=== PATIENT | female | born 1990 ===

== ENCOUNTER 2016-07-19 18:32 | Observation (INO) | payer OTHER ==
[2016-07-19] MEDS ORDERED: Sodium Chloride 0.9% 500 ML IV STA (18:44)
--- NOTE | 2016-07-19 18:50 | ED PDOC ---
Arrival/HPI - General Chief Complaint: Syncope Time Seen by Provider: 07/19/16 18:35 Historian: Patient, Family (Brother) - History of Present Illness Time/Duration: Prior to Arrival Symptom Onset: Sudden Symptom Course: Improving Severity Level: Moderate Associated Symptoms (Text): 07/19/16 18:47 Patient reports that they had finished eating and she and her brother were walking down the sidewalk, she became dizzy lightheaded and near syncopal, and then had a syncopal episode falling backwards with her brother catching her. There was no trauma. No chest pain palpitations or dyspnea. No nausea or vomiting. No tongue biting or incontinence. No seizure activity. There is a history of syncope. Past Medical History - Infectious Disease Hx of Infectious Diseases: None - Pulmonary Hx Asthma: Yes - Psychiatric Hx Substance Use: No - Surgical History Hx Dilation and Curettage: Yes Family/Social History - Physician Review Nursing Documentation Reviewed: Yes Family/Social History: Unknown Family HX Smoking Status: Former Smoker (Quit smoking 2 years ago) Hx Alcohol Use: Yes Frequency of alcohol use: Socially Hx Substance Use: No Allergies/Home Meds Allergies/Adverse Reactions: Allergies No Known Allergies Allergy (Verified 07/19/16 18:41) Home Medications: Home Meds Medication Instructions Recorded Confirmed Albuterol HFA [Ventolin HFA 90 2 puff INH PRN PRN 07/19/16 07/19/16 mcg/actuation (8 g)] Review of Systems - Physician Review All systems were reviewed & negative as marked: Yes - Review of Systems Constitutional: Normal Respiratory: Normal Cardiovascular: Normal Gastrointestinal: Normal Genitourinary Female: Normal Skin: Normal Neurological: Dizziness. absent: Headache, Focal Weakness, Gait Changes, Speech Changes, Facial Droop, Disequilibrium, Seizure Physical Exam Vital Signs Temp Pulse Resp BP Pulse Ox 07/19/16 19:31 98 F 76 18 105/68 98 07/19/16 19:12 98.3 F 65 16 105/59 L 100 Temperature: Afebrile Blood Pressure: Normal Pulse: Regular Respiratory Rate: Normal Appearance: Positive for: Well-Appearing, Non-Toxic, Comfortable Pain Distress: None Mental Status: Positive for: Alert and Oriented X 3 - Systems Exam Head: Present: Atraumatic, Normocephalic Pupils: Present: PERRL Extroacular Muscles: Present: EOMI Conjunctiva: Present: Normal Ears: Present: NORMAL TM, Normal Canal. No: Erythema Mouth: No: Moist Mucous Membranes Pharnyx: No: ERYTHEMA, EXUDATE, TONSILS ENLARGED Neck: Present: Normal Range of Motion Respiratory/Chest: Present: Clear to Auscultation, Good Air Exchange. No: Respiratory Distress, Accessory Muscle Use Cardiovascular: Present: Regular Rate and Rhythm, Normal S1, S2. No: Murmurs Abdomen: Present: Normal Bowel Sounds. No: Tenderness, Distention, Peritoneal Signs, Rebound, Guarding Upper Extremity: Present: Normal Inspection. No: Cyanosis, Edema Lower Extremity: Present: Normal Inspection. No: Edema Neurological: Present: GCS=15, CN II-XII Intact, Speech Normal, Motor Func Grossly Intact, Normal Sensory Function, Normal Cerebellar Funct Skin: Present: Warm, Dry, Normal Color. No: Rashes Psychiatric: Present: Alert, Oriented x 3, Normal Insight, Normal Concentration Medical Decision Making ED Course and Treatment: 07/19/16 18:49 EKG shows normal sinus rhythm rate approximately 65 with a sinus arrhythmia and no acute ST or T-wave changes 07/19/16 20:22 Patient is complaining of an aching type of chest pain now which she has had for approximately 5 minutes. Her lungs are clear. Heart is regular. Chest is nontender. Repeat EKG shows normal sinus rhythm rate approximately 70 with a right bundle branch block and no acute ST or T-wave changes. A d-dimer has been added. 07/19/16 20:55 D-dimer is negative. Arrangements made for telemetry observation with the medical tech for the hospitalist service and house doctor Dr Thony Aguirre will be here. 07/19/16 21:00 Chest 1 view shows no infiltrate or effusion or cardiomegaly - Lab Interpretations Lab Results: 07/19/16 19:00 07/19/16 19:00 Lab Results 07/19/16 19:00: D-Dimer, Quantitative 0.24 07/19/16 19:00: Alcohol, Quantitative < 10 07/19/16 19:00: Sodium 139, Potassium 3.4 L, Chloride 103, Carbon Dioxide 28, Anion Gap 11, BUN 13, Creatinine 0.7, Est GFR ( Amer) > 60, Est GFR (Non- Af Amer) > 60, Random Glucose 104, Calcium 8.6, Phosphorus 2.7, Magnesium 2.0, Total Bilirubin 0.3, AST 18, ALT 28, Alkaline Phosphatase 64, Lactate Dehydrogenase 335, Total Creatine Kinase 30 L, Troponin I < 0.01, Total Protein 6.7, Albumin 3.8, Globulin 2.8, Albumin/Globulin Ratio 1.4 07/19/16 19:00: WBC 4.3 L, RBC 4.24, Hgb 11.1 L, Hct 33.7 L, MCV 79.5 L, MCH 26.2, MCHC 32.9, RDW 13.5, Plt Count 243, MPV 10.3, Gran % 54.9, Lymph % (Auto) 36.0 H, [place] % (Auto) 7.7 H, Eos % (Auto) 0.9 L, Baso % (Auto) 0.5, Gran # 2.36 , Lymph # 1.6, [place] # 0.3, Eos # 0.0, Baso # 0.02 07/19/16 18:50: Urine Opiates Screen Negative, Urine Methadone Screen Negative, Ur Barbiturates Screen Negative, Ur Phencyclidine Scrn Negative, Ur Amphetamines Screen Negative, U Benzodiazepines Scrn Negative, U Oth Cocaine Metabols Negative, U Cannabinoids Screen Negative 07/19/16 18:50: Urine Color Yellow, Urine Appearance Clear, Urine pH 6.5, Ur Specific [place] 1.025, Urine Protein Negative, Urine Glucose (UA) 100 H, Urine Ketones Trace H, Urine Blood Negative, Urine Nitrate Negative, Urine Bilirubin Negative, Urine Urobilinogen 0.2, Ur Leukocyte Esterase Negative - RAD Interpretation Radiology Orders: 07/19/16 18:44 HEAD W/O CONTRAST [CT] Stat 07/19/16 20:48 CHEST PORTABLE [RAD] Stat CT scan of the head as read by the radiologist shows no acute findings Chute Operator: Radiologist - Medication Orders Current Medication Orders: Discontinued Medications Sodium Chloride (Sodium Chloride 0.9%) 500 mls @ 1,000 mls/hr IV .Q30M STA Stop: 07/19/16 19:13 Last Admin: 07/19/16 19:07 Dose: 1,000 mls/hr Potassium Chloride (Klor-Con 10) 10 meq PO STAT STA Stop: 07/19/16 20:18 Last Admin: 07/19/16 20:28 Dose: 10 meq Comments: 1 Disposition/Present on Arrival - Present on Arrival Any Indicators Present on Arrival: No History of DVT/PE: No History of Uncontrolled Diabetes: No Urinary Catheter: No History of Decub. Ulcer: No History Surgical Site Infection Following: None - Disposition Have Diagnosis and Disposition been Completed?: Yes Diagnosis: Syncope, Right bundle branch block Disposition: HOSPITALIZED Disposition Time: 20:56 Patient Plan: Observation, Telemetry Patient Problems: Current Active Problems Problem Status Onset Right bundle branch block Acute Syncope Acute Condition: GOOD Discharge Instructions (ExitCare): Syncope (ED) Referrals: PCP,NO [Primary Care Provider] - Follow up with primary
[2016-07-19 19:05] LABS: PH,URINE 6.5 (4.7-8.0); URINE BILIRUBIN NEGATIVE (NEGATIVE); URINE BLOOD NEGATIVE (NEGATIVE); URINE GLUCOSE (UA) 100 mg/dL (NEGATIVE); URINE KETONE TRACE mg/dL (NEGATIVE); URINE LEUKOCYTE ESTERASE NEGATIVE Leu/uL (NEGATIVE); URINE UROBILINOGEN 0.2 E.U./dL (<1 E.U./dL)
[2016-07-19 19:08] LABS: URINE APPEARANCE CLEAR (CLEAR); URINE COLOR YELLOW (YELLOW); URINE PROTEIN NEGATIVE mg/dL (<30 mg/dL)
[2016-07-19 19:34] LABS: ADD MANUAL DIFF? NO
[2016-07-19 19:52] LABS: BASO # 0.02 K/mm3 (0.0-2.0); BASO % 0.5 % (0.0-3.0); EOS % 0.9 % (1.5-5.0); GRAN # 2.36 (1.4-6.5); GRAN % 54.9 % (50.0-68.0); HEMATOCRIT 33.7 % (36.0-48.0); LYMPH # 1.6 (1.2-3.4); MEAN CELL VOLUME 79.5 fL (80.0-105.0); MEAN CORPUSCULAR HEMOGLOBIN 26.2 pg (25.0-35.0); MEAN CORPUSCULAR HGB CONC 32.9 g/dl (31.0-37.0); MEAN PLATELET VOLUME 10.3 fl (7.0-11.0); MONO # 0.3 (0.1-0.6); MONO % 7.7 % (1.0-6.0); PLATELET COUNT 243 10^3/uL (120.0-450.0); RED CELL DISTRIBUTION WIDTH 13.5 % (11.5-14.5); WHITE BLOOD COUNT 4.3 10^3/ul (4.5-11.0)
[2016-07-19 19:54] LABS: ALB/GLOB RATIO 1.4 (1.1-1.8); ALKALINE PHOSPHATASE 64 U/L (38-133); ALT/SGPT 28 U/L (7-56); AST/SGOT 18 U/L (15-39); BILIRUBIN,TOTAL 0.3 mg/dL (0.2-1.3); BLOOD UREA NITROGEN 13 mg/dL (7-21); CALCIUM 8.6 mg/dL (8.4-10.5); CARBON DIOXIDE 28 mmol/L (21-33); GFR AFRICAN-AMERICAN > 60; GLUCOSE,RANDOM 104 mg/dL (70-110); PHOSPHOROUS 2.7 mg/dL (2.5-4.5); TOTAL PROTEIN 6.7 g/dL (5.8-8.3)
[2016-07-19 20:06] LABS: TROPONIN I < 0.01 ng/mL
--- NOTE | 2016-07-19 20:10 | CT ---
EXAM: CT Head Without Intravenous Contrast CLINICAL HISTORY: 25 years old, female; Signs and symptoms; Syncope and collapse TECHNIQUE: Axial computed tomography images of the head/brain without intravenous contrast. This CT exam was performed using one or more of the following dose reduction techniques: automated exposure control, adjustment of the mA and/or kV according to patient size, and/or use of iterative reconstruction technique. EXAM DATE/TIME: 07/19/2016 6:44 PM COMPARISON: There are no prior studies for comparison. FINDINGS: Brain: Ventricles are normal in size and configuration. There is no midline shift. There are no intra-axial or extra-axial mass lesions or areas of hemorrhage. There are no abnormal fluid collections. [place]-white differentiation is maintained. Ventricles: See above. Bones: Cranial vault is intact. Soft tissues: unremarkable Sinuses: There is no acute sinusitis. Ears and mastoids: Middle ears and mastoids are unremarkable Orbits: Orbital contents are unremarkable. IMPRESSION: No intracranial abnormality
[2016-07-19 20:14] LABS: CHLORIDE 103 mmol/L (95-110); POTASSIUM 3.4 mmol/L (3.6-5.0); SODIUM 139 mmol/L (132-148)
[2016-07-19] MEDS ORDERED: Potassium Chloride 10 mEq ER Tab PO STA (20:17)
--- NOTE | 2016-07-19 21:31 | CP.PCM.HP ---
History of Present Illness - History of Present Illness History of Present Illness: 25 year old female with past medical history of asthma presents to [facility] ED today after having a syncope episode. Patient reports she was walking on the side walk with her brother at about 6pm after having Italian food for dinner. Patient suddenly felt dizziness as if things around her are moving and proceed to passing out. Patient fell and hit back of her head on the sidewalk. The whole episode was witnessed by her brother, whom states that patient did not have any seizure like activities and she was unconscious for approximately 3 minutes. Patient did not have shortness of breath, chest pain, urinary or fecal incontinence. Patient also reports she had a similar episode for the first time 1.5 weeks ago, where she syncopized and hit her head on the sidewalk. However, that episodes only lasted a few seconds. While in the ED patient developed chest pain, and her EKG showed incomplete right bundle branch block. Patient denies fever, chills, weakness, shortness of breath, palpitations, abdominal pain, nausea, vomiting, diarrhea, urinary symptoms, recent travel or sick contacts. PMHx: Asthma PSHx: D&C Allergy: none Social Hx: Former smoker (1/2 pack x 5yrs), social alcohol use, past marijuana use Family Hx: mother-multiple CVA, unknown congenital cardiac condition Home meds: albuterol Present on Admission - Present on Admission Any Indicators Present on Admission: No History of DVT/PE: No History of Uncontrolled Diabetes: No Review of Systems - Constitutional Constitutional: As Per HPI, Headache (posterior head injury). absent: Chills, Fever, Weakness - EENT Eyes: As Per HPI. absent: Blurred Vision, Change in Vision, Itchy Eyes, Loss of Vision Ears: As Per HPI, Dizziness. absent: Disequilibrium Nose/Mouth/Throat: As Per HPI. absent: Sinus Pain, Dysphagia, Hoarsness - Cardiovascular Cardiovascular: As Per HPI, Syncope. absent: Chest Pain, Dyspnea - Respiratory Respiratory: As Per HPI. absent: Dyspnea, Wheezing, Chest Congestion - Gastrointestinal Gastrointestinal: As Per HPI. absent: Constipation, Diarrhea, Fecal Incontinence, Nausea, Vomiting - Genitourinary Genitourinary: As Per HPI. absent: Urinary Incontinence, Urinary Frequency, Urinary Hesitance - Musculoskeletal Musculoskeletal: As Per HPI. absent: Deformity, Numbness - Integumentary Integumentary: As Per HPI. absent: Dry Skin, Erythema, Swelling - Neurological Neurological: As Per HPI, Dizziness, Syncope. absent: Numbness, Tremor, Weakness - Psychiatric Psychiatric: As Per HPI. absent: Anxiety, Hopelessness, Irritability, Memory Loss - Endocrine Endocrine: As Per HPI - Hematologic/Lymphatic Hematologic: As Per HPI Past Patient History - Infectious Disease Hx of Infectious Diseases: None - Past Social History Smoking Status: Former Smoker (Quit smoking 2 years ago) - PULMONARY Hx Asthma: Yes - NEUROLOGICAL Hx Neurological Disorder: Yes (syncope) - INTEGUMENTARY Other/Comment: tatoos left hip and left chest - PSYCHIATRIC Hx Substance Use: No - SURGICAL HISTORY Hx Surgeries: Yes (d&c) Meds Allergies/Adverse Reactions: Allergies Allergy/AdvReac Type Severity Reaction Status Date / Time No Known Allergies Allergy Verified 07/19/16 18:41 Physical Exam - Constitutional Appears: Non-toxic, No Acute Distress - Head Exam Head Exam: NORMOCEPHALIC. absent: ATRAUMATIC (left occiput region tenderness) - Eye Exam Eye Exam: EOMI, Normal appearance, PERRL - ENT Exam ENT Exam: Mucous Membranes Moist - Neck Exam Neck exam: Positive for: Normal Inspection - Respiratory Exam Respiratory Exam: Clear to Auscultation Bilateral, NORMAL BREATHING PATTERN. absent: Rhonchi, Wheezes, Respiratory Distress - Cardiovascular Exam Cardiovascular Exam: REGULAR RHYTHM, RRR, +S1, +S2 - GI/Abdominal Exam GI & Abdominal Exam: Normal Bowel Sounds, Soft. absent: Tenderness - Extremities Exam Extremities exam: Positive for: normal capillary refill, normal inspection, pedal pulses present. Negative for: joint swelling, pedal edema, tenderness - Back Exam Back exam: NORMAL INSPECTION - Neurological Exam Neurological exam: Alert, CN II-XII Intact, Oriented x3 - Psychiatric Exam Psychiatric exam: Normal Affect, Normal Mood - Skin Skin Exam: Dry, Normal Color, Warm Results - Vital Signs Recent Vital Signs: Last Vital Signs Temp 98 F 07/19/16 19:31 Pulse 76 07/19/16 19:31 Resp 18 07/19/16 19:31 BP 105/68 07/19/16 19:31 Pulse Ox 98 07/19/16 19:31 - Labs Result Diagrams: 07/19/16 19:00 07/19/16 19:00 Labs: Laboratory Results - last 24 hr 07/19/16 07/19/16 07/19/16 18:50 18:50 19:00 WBC 4.3 L RBC 4.24 Hgb 11.1 L Hct 33.7 L MCV 79.5 L MCH 26.2 MCHC 32.9 RDW 13.5 Plt Count 243 MPV 10.3 Gran % 54.9 Lymph % (Auto) 36.0 H [place] % (Auto) 7.7 H Eos % (Auto) 0.9 L Baso % (Auto) 0.5 Gran # 2.36 Lymph # 1.6 [place] # 0.3 Eos # 0.0 Baso # 0.02 D-Dimer, Quantitative Sodium Potassium Chloride Carbon Dioxide Anion Gap BUN Creatinine Est GFR ( Amer) Est GFR (Non-Af Amer) Random Glucose Calcium Phosphorus Magnesium Total Bilirubin AST ALT Alkaline Phosphatase Lactate Dehydrogenase Total Creatine Kinase Troponin I Total Protein Albumin Globulin Albumin/Globulin Ratio Urine Color Yellow Urine Appearance Clear Urine pH 6.5 Ur Specific [place] 1.025 Urine Protein Negative Urine Glucose (UA) 100 H Urine Ketones Trace H Urine Blood Negative Urine Nitrate Negative Urine Bilirubin Negative Urine Urobilinogen 0.2 Ur Leukocyte Esterase Negative Urine Opiates Screen Negative Urine Methadone Screen Negative Ur Barbiturates Screen Negative Ur Phencyclidine Scrn Negative Ur Amphetamines Screen Negative U Benzodiazepines Scrn Negative U Oth Cocaine Metabols Negative U Cannabinoids Screen Negative Alcohol, Quantitative 07/19/16 07/19/16 07/19/16 19:00 19:00 19:00 WBC RBC Hgb Hct MCV MCH MCHC RDW Plt Count MPV Gran % Lymph % (Auto) [place] % (Auto) Eos % (Auto) Baso % (Auto) Gran # Lymph # [place] # Eos # Baso # D-Dimer, Quantitative 0.24 Sodium 139 Potassium 3.4 L Chloride 103 Carbon Dioxide 28 Anion Gap 11 BUN 13 Creatinine 0.7 Est GFR ( Amer) > 60 Est GFR (Non-Af Amer) > 60 Random Glucose 104 Calcium 8.6 Phosphorus 2.7 Magnesium 2.0 Total Bilirubin 0.3 AST 18 ALT 28 Alkaline Phosphatase 64 Lactate Dehydrogenase 335 Total Creatine Kinase 30 L Troponin I < 0.01 Total Protein 6.7 Albumin 3.8 Globulin 2.8 Albumin/Globulin Ratio 1.4 Urine Color Urine Appearance Urine pH Ur Specific [place] Urine Protein Urine Glucose (UA) Urine Ketones Urine Blood Urine Nitrate Urine Bilirubin Urine Urobilinogen Ur Leukocyte Esterase Urine Opiates Screen Urine Methadone Screen Ur Barbiturates Screen Ur Phencyclidine Scrn Ur Amphetamines Screen U Benzodiazepines Scrn U Oth Cocaine Metabols U Cannabinoids Screen Alcohol, Quantitative < 10 Assessment & Plan - Assessment and Plan (Free Text) Assessment: 25 year old female with past medical history of asthma presents after having an episode of syncope Plan: Syncope -Likely dehydration vs vasovagal vs cardiac etiologies -CT Head no intracranial abnormalities -Orthostatic blood pressure -IVF NS 100ml/hr -Neuro check Q4 -Follow up Echocardiogram -Cardiology consult, Dr. Sol help appreciated Chest pain -Started and resolved in the ED -CXR no active disease -Repeat EKG showed NSR at 70bpm, incomplete right bundle branch block and no acute ST changes -D Dimer negative -Follow up lipid panel -Follow up Echocardiogram -Cardiology consult, Dr. Sol help appreciated Asthma -Resume albuterol prn Prophylactic measures -Protonix for GI ppx -SCD for DVT ppx
[2016-07-19 21:32] VITALS: BMI 22.3
[2016-07-19] MEDS ORDERED: Pneumococcal 23-Valent Vaccine IM ONE (21:32)
[2016-07-19] MEDS ORDERED: Sodium Chloride 0.9% 1,000 ML IV SCH (21:45)
[2016-07-19] MEDS ORDERED: Albuterol HFA 90 mcg/actuation (8 g) INH PRN (22:04)
[2016-07-19] MEDS ORDERED: Albuterol 0.083% Inhal Sol (2.5 mg/3 mL) UD IH PRN (22:06)
[2016-07-20 06:29] VITALS: O2SAT 100
[2016-07-20] MEDS ORDERED: Pantoprazole 40 mg EC Tab PO SCH (06:30)
[2016-07-20 06:44] LABS: ADD MANUAL DIFF? NO
[2016-07-20 06:51] LABS: BASO # 0.03 K/mm3 (0.0-2.0); BASO % 0.8 % (0.0-3.0); EOS # 0.1 (0.0-0.7); EOS % 2.4 % (1.5-5.0); GRAN # 1.34 (1.4-6.5); GRAN % 35.7 % (50.0-68.0); HEMATOCRIT 34.2 % (36.0-48.0); LYMPH # 1.8 (1.2-3.4); LYMPH % 47.2 % (22.0-35.0); MEAN CELL VOLUME 80.1 fL (80.0-105.0); MEAN CORPUSCULAR HGB CONC 32.5 g/dl (31.0-37.0); MEAN PLATELET VOLUME 9.8 fl (7.0-11.0); MONO # 0.5 (0.1-0.6); MONO % 13.9 % (1.0-6.0); PLATELET COUNT 211 10^3/uL (120.0-450.0); RED CELL DISTRIBUTION WIDTH 13.6 % (11.5-14.5); WHITE BLOOD COUNT 3.8 10^3/ul (4.5-11.0)
[2016-07-20 06:56] LABS: BLOOD UREA NITROGEN 15 mg/dL (7-21); CALCIUM 8.7 mg/dL (8.4-10.5); CARBON DIOXIDE 28 mmol/L (21-33); CHLORIDE 108 mmol/L (98-107); CHOLESTEROL 134 mg/dL (130-200); GFR AFRICAN-AMERICAN > 60; GLUCOSE,RANDOM 80 mg/dL (70-110); POTASSIUM 4.3 mmol/L (3.6-5.0); SODIUM 139 mmol/L (132-148)
[2016-07-20 07:39] LABS: TROPONIN I < 0.01 ng/mL
--- NOTE | 2016-07-20 10:52 | RAD ---
HISTORY: cp COMPARISON: No prior. FINDINGS: LUNGS: No active pulmonary disease. PLEURA: No significant pleural effusion identified, no pneumothorax apparent. CARDIOVASCULAR: Normal. OSSEOUS STRUCTURES: No significant abnormalities. VISUALIZED UPPER ABDOMEN: Normal. OTHER FINDINGS: None. IMPRESSION: No active disease.
--- NOTE | 2016-07-20 11:38 | CP.PCM.DIS ---
<Jerry Pompa - Last Filed: 07/29/16 15:14> Provider - Provider Date of Admission: 07/19/16 20:56 Attending physician: Altaf Goldberg MD Consults: Neuro: Ranjana Lagunas Time Spent in preparation of Discharge (in minutes): 45 Hospital Course - Lab Results Lab Results: Most Recent Lab Values WBC 3.8 10^3/ul (4.5-11.0) L 07/20/16 06:00 RBC 4.27 10^6/uL (3.5-6.1) 07/20/16 06:00 Hgb 11.1 gm/dL (12.0-16.0) L 07/20/16 06:00 Hct 34.2 % (36.0-48.0) L 07/20/16 06:00 MCV 80.1 fL (80.0-105.0) 07/20/16 06:00 MCH 26.0 pg (25.0-35.0) 07/20/16 06:00 MCHC 32.5 g/dl (31.0-37.0) 07/20/16 06:00 RDW 13.6 % (11.5-14.5) 07/20/16 06:00 Plt Count 211 10^3/uL (120.0-450.0) 07/20/16 06:00 MPV 9.8 fl (7.0-11.0) 07/20/16 06:00 Gran % 35.7 % (50.0-68.0) L 07/20/16 06:00 Lymph % (Auto) 47.2 % (22.0-35.0) H 07/20/16 06:00 [place] % (Auto) 13.9 % (1.0-6.0) H 07/20/16 06:00 Eos % (Auto) 2.4 % (1.5-5.0) 07/20/16 06:00 Baso % (Auto) 0.8 % (0.0-3.0) 07/20/16 06:00 Gran # 1.34 (1.4-6.5) L 07/20/16 06:00 Lymph # 1.8 (1.2-3.4) 07/20/16 06:00 [place] # 0.5 (0.1-0.6) 07/20/16 06:00 Eos # 0.1 (0.0-0.7) 07/20/16 06:00 Baso # 0.03 K/mm3 (0.0-2.0) 07/20/16 06:00 D-Dimer, Quantitative 0.24 mg/L FEU (0-0.50) 07/19/16 19:00 Sodium 139 mmol/L (132-148) 07/20/16 06:00 Potassium 4.3 mmol/L (3.6-5.0) 07/20/16 06:00 Chloride 108 mmol/L (98-107) H 07/20/16 06:00 Carbon Dioxide 28 mmol/L (21-33) 07/20/16 06:00 Anion Gap 7 (10-20) L 07/20/16 06:00 BUN 15 mg/dL (7-21) 07/20/16 06:00 Creatinine 0.7 mg/dL (0.5-1.4) 07/20/16 06:00 Est GFR ( Amer) > 60 07/20/16 06:00 Est GFR (Non-Af Amer) > 60 07/20/16 06:00 Random Glucose 80 mg/dL (70-110) 07/20/16 06:00 Calcium 8.7 mg/dL (8.4-10.5) 07/20/16 06:00 Phosphorus 2.7 mg/dL (2.5-4.5) 07/19/16 19:00 Magnesium 2.0 mg/dL (1.7-2.2) 07/19/16 19:00 Total Bilirubin 0.3 mg/dL (0.2-1.3) 07/19/16 19:00 AST 18 U/L (15-39) 07/19/16 19:00 ALT 28 U/L (7-56) 07/19/16 19:00 Alkaline Phosphatase 64 U/L (38-133) 07/19/16 19:00 Lactate Dehydrogenase 278 U/L (333-699) L 07/20/16 06:00 Total Creatine Kinase 29 U/L (35-230) L 07/20/16 06:00 Troponin I < 0.01 ng/mL 07/20/16 06:00 Total Protein 6.7 g/dL (5.8-8.3) 07/19/16 19:00 Albumin 3.8 g/dL (3.0-4.8) 07/19/16 19:00 Globulin 2.8 gm/dL 07/19/16 19:00 Albumin/Globulin Ratio 1.4 (1.1-1.8) 07/19/16 19:00 Triglycerides 42 mg/dL (35-160) 07/20/16 06:00 Cholesterol 134 mg/dL (130-200) 07/20/16 06:00 LDL Cholesterol Direct 63 mg/dL (0-129) 07/20/16 06:00 HDL Cholesterol 57 mg/dL (29-60) 07/20/16 06:00 Urine Color Yellow (YELLOW) 07/19/16 18:50 Urine Appearance Clear (CLEAR) 07/19/16 18:50 Urine pH 6.5 (4.7-8.0) 07/19/16 18:50 Ur Specific [place] 1.025 (1.005-1.035) 07/19/16 18:50 Urine Protein Negative mg/dL (<30 mg/dL) 07/19/16 18:50 Urine Glucose (UA) 100 mg/dL (NEGATIVE) H 07/19/16 18:50 Urine Ketones Trace mg/dL (NEGATIVE) H 07/19/16 18:50 Urine Blood Negative (NEGATIVE) 07/19/16 18:50 Urine Nitrate Negative (NEGATIVE) 07/19/16 18:50 Urine Bilirubin Negative (NEGATIVE) 07/19/16 18:50 Urine Urobilinogen 0.2 E.U./dL (<1 E.U./dL) 07/19/16 18:50 Ur Leukocyte Esterase Negative Clint/uL (NEGATIVE) 07/19/16 18:50 Urine Opiates Screen Negative (NEGATIVE) 07/19/16 18:50 Urine Methadone Screen Negative (NEGATIVE) 07/19/16 18:50 Ur Barbiturates Screen Negative (NEGATIVE) 07/19/16 18:50 Ur Phencyclidine Scrn Negative (NEGATIVE) 07/19/16 18:50 Ur Amphetamines Screen Negative (NEGATIVE) 07/19/16 18:50 U Benzodiazepines Scrn Negative (NEGATIVE) 07/19/16 18:50 U Oth Cocaine Metabols Negative (NEGATIVE) 07/19/16 18:50 U Cannabinoids Screen Negative (NEGATIVE) 07/19/16 18:50 Alcohol, Quantitative < 10 mg/dL (0-10) 07/19/16 19:00 - Hospital Course Hospital Course: Upon Admission: 25yo F with PMHx of Asthma here for evaluation of syncope. Patient was walking with her brother when she felt dizzy, lightheaded and had a syncopal episode. She states that she fell and hit the back of her head on the ground. CT head was negative. Cardiology consult was obtained who recommended f/u as out- patient with out-patient ECHO. Neuro consult was obtained who agree that the syncopal episode was likely vasovagal in nature and agree with discharge. Patient was asked to stay well hydrated and follow up with her PMD as out- patient. Patient understands and agrees with plan. 1. Syncope; Likely vasovagal 2. Hx of Asthma Upon Discharge: Patient is cleared for discharge as per Dr. Rod 1. Follow up with your primary care physician within 1 week. Or you may follow up with [facility] clinic. Call for appointment 2. Resume home meds 3. Stay well hydrated 4. Take OTC Tylenol as directed as needed for headache. 5. Return to the ER with any concerning symptoms. No new prescriptions. Discharge Exam - Head Exam Head Exam: ATRAUMATIC (left occiput region tenderness), NORMAL INSPECTION, NORMOCEPHALIC - Eye Exam Eye Exam: EOMI, Normal appearance. absent: Scleral icterus - ENT Exam ENT Exam: Mucous Membranes Moist - Neck Exam Neck exam: Full Rom - Respiratory Exam Respiratory Exam: Clear to PA & Lateral, NORMAL BREATHING PATTERN, UNREMARKABLE. absent: Accessory Muscle Use, Chest Wall Tenderness, Decreased Breath Sounds, Rhonchi, Wheezes, Respiratory Distress - Cardiovascular Exam Cardiovascular Exam: RRR, +S1, +S2. absent: JVD - GI/Abdominal Exam GI & Abdominal Exam: Normal Bowel Sounds, Soft. absent: Distended, Rebound, Rigid, Tenderness - Extremities Exam Extremities exam: normal inspection - Back Exam Back exam: NORMAL INSPECTION - Neurological Exam Neurological exam: Alert, Oriented x3 - Psychiatric Exam Psychiatric exam: Normal Affect, Normal Mood - Skin Skin Exam: Dry, Intact, Normal Color, Warm Discharge Plan - Follow Up Plan Condition: GOOD Disposition: HOME/ ROUTINE Instructions: Asthma (GEN) Additional Instructions: Patient is cleared for discharge as per Dr. Rod 1. Follow up with your primary care physician within 1 week. Or you may follow up with [facility] clinic. Call for appointment 2. Resume home meds 3. Stay well hydrated 4. Take OTC Tylenol as directed as needed for headache. 5. Return to the ER with any concerning symptoms. No new prescriptions. Referrals: [facility] at [facility] [Outside] <Viola CEBALLOS,Gilbert - Last Filed: 07/30/16 14:04> Provider - Provider Date of Admission: 07/19/16 20:56 Attending physician: Altaf Goldberg MD Hospital Course - Lab Results Lab Results: Most Recent Lab Values WBC 3.8 10^3/ul (4.5-11.0) L 07/20/16 06:00 RBC 4.27 10^6/uL (3.5-6.1) 07/20/16 06:00 Hgb 11.1 gm/dL (12.0-16.0) L 07/20/16 06:00 Hct 34.2 % (36.0-48.0) L 07/20/16 06:00 MCV 80.1 fL (80.0-105.0) 07/20/16 06:00 MCH 26.0 pg (25.0-35.0) 07/20/16 06:00 MCHC 32.5 g/dl (31.0-37.0) 07/20/16 06:00 RDW 13.6 % (11.5-14.5) 07/20/16 06:00 Plt Count 211 10^3/uL (120.0-450.0) 07/20/16 06:00 MPV 9.8 fl (7.0-11.0) 07/20/16 06:00 Gran % 35.7 % (50.0-68.0) L 07/20/16 06:00 Lymph % (Auto) 47.2 % (22.0-35.0) H 07/20/16 06:00 [place] % (Auto) 13.9 % (1.0-6.0) H 07/20/16 06:00 Eos % (Auto) 2.4 % (1.5-5.0) 07/20/16 06:00 Baso % (Auto) 0.8 % (0.0-3.0) 07/20/16 06:00 Gran # 1.34 (1.4-6.5) L 07/20/16 06:00 Lymph # 1.8 (1.2-3.4) 07/20/16 06:00 [place] # 0.5 (0.1-0.6) 07/20/16 06:00 Eos # 0.1 (0.0-0.7) 07/20/16 06:00 Baso # 0.03 K/mm3 (0.0-2.0) 07/20/16 06:00 D-Dimer, Quantitative 0.24 mg/L FEU (0-0.50) 07/19/16 19:00 Sodium 139 mmol/L (132-148) 07/20/16 06:00 Potassium 4.3 mmol/L (3.6-5.0) 07/20/16 06:00 Chloride 108 mmol/L (98-107) H 07/20/16 06:00 Carbon Dioxide 28 mmol/L (21-33) 07/20/16 06:00 Anion Gap 7 (10-20) L 07/20/16 06:00 BUN 15 mg/dL (7-21) 07/20/16 06:00 Creatinine 0.7 mg/dL (0.5-1.4) 07/20/16 06:00 Est GFR ( Amer) > 60 07/20/16 06:00 Est GFR (Non-Af Amer) > 60 07/20/16 06:00 POC Glucose (mg/dL) 86 mg/dL (65-110) 07/20/16 07:21 Random Glucose 80 mg/dL (70-110) 07/20/16 06:00 Calcium 8.7 mg/dL (8.4-10.5) 07/20/16 06:00 Phosphorus 2.7 mg/dL (2.5-4.5) 07/19/16 19:00 Magnesium 2.0 mg/dL (1.7-2.2) 07/19/16 19:00 Total Bilirubin 0.3 mg/dL (0.2-1.3) 07/19/16 19:00 AST 18 U/L (15-39) 07/19/16 19:00 ALT 28 U/L (7-56) 07/19/16 19:00 Alkaline Phosphatase 64 U/L (38-133) 07/19/16 19:00 Lactate Dehydrogenase 278 U/L (333-699) L 07/20/16 06:00 Total Creatine Kinase 29 U/L (35-230) L 07/20/16 06:00 Troponin I < 0.01 ng/mL 07/20/16 06:00 Total Protein 6.7 g/dL (5.8-8.3) 07/19/16 19:00 Albumin 3.8 g/dL (3.0-4.8) 07/19/16 19:00 Globulin 2.8 gm/dL 07/19/16 19:00 Albumin/Globulin Ratio 1.4 (1.1-1.8) 07/19/16 19:00 Triglycerides 42 mg/dL (35-160) 07/20/16 06:00 Cholesterol 134 mg/dL (130-200) 07/20/16 06:00 LDL Cholesterol Direct 63 mg/dL (0-129) 07/20/16 06:00 HDL Cholesterol 57 mg/dL (29-60) 07/20/16 06:00 Urine Color Yellow (YELLOW) 07/19/16 18:50 Urine Appearance Clear (CLEAR) 07/19/16 18:50 Urine pH 6.5 (4.7-8.0) 07/19/16 18:50 Ur Specific [place] 1.025 (1.005-1.035) 07/19/16 18:50 Urine Protein Negative mg/dL (<30 mg/dL) 07/19/16 18:50 Urine Glucose (UA) 100 mg/dL (NEGATIVE) H 07/19/16 18:50 Urine Ketones Trace mg/dL (NEGATIVE) H 07/19/16 18:50 Urine Blood Negative (NEGATIVE) 07/19/16 18:50 Urine Nitrate Negative (NEGATIVE) 07/19/16 18:50 Urine Bilirubin Negative (NEGATIVE) 07/19/16 18:50 Urine Urobilinogen 0.2 E.U./dL (<1 E.U./dL) 07/19/16 18:50 Ur Leukocyte Esterase Negative Clint/uL (NEGATIVE) 07/19/16 18:50 Urine Opiates Screen Negative (NEGATIVE) 07/19/16 18:50 Urine Methadone Screen Negative (NEGATIVE) 07/19/16 18:50 Ur Barbiturates Screen Negative (NEGATIVE) 07/19/16 18:50 Ur Phencyclidine Scrn Negative (NEGATIVE) 07/19/16 18:50 Ur Amphetamines Screen Negative (NEGATIVE) 07/19/16 18:50 U Benzodiazepines Scrn Negative (NEGATIVE) 07/19/16 18:50 U Oth Cocaine Metabols Negative (NEGATIVE) 07/19/16 18:50 U Cannabinoids Screen Negative (NEGATIVE) 07/19/16 18:50 Alcohol, Quantitative < 10 mg/dL (0-10) 07/19/16 19:00 Attending/Attestation - Attestation I have personally seen and examined this patient.: Yes I have fully participated in the care of the patient.: Yes I have reviewed all pertinent clinical information, including history, physical exam and plan: Yes Notes (Text): 07/30/16 14:02 Patient was seen and examined with hospital medical assistant .Agreed with resident assessment and plan. 25 Yrs old female with PMH of Asthma was admitted with syncope, likely vaso vagal, remain stable in tele, she is ambulatory.She was evaluated by Neurology and Cardiology.No further work up was recommended . Patient will be discharged home and will follow up with PCP. Management plan was discussed in detail with patient Education was provided.
[2016-07-20 12:05] VITALS: BP 101/52; PULSE 64; RESP 20; TEMP 98.4
--- NOTE | 2016-07-20 13:11 | CON ---
DATE: 07/20/2016 CHIEF COMPLAINT: Syncope. HISTORY OF PRESENT ILLNESS: A 25-year-old woman with history of asthma came to the hospital with syn copal episode. She felt dizzy while she was walking on the sidewalk with her brother after eating [place] in[place] food after dinner. She felt lightheaded and passed out a few seconds. She had a similar episo de, but no history of seizures. No bowel or bladder incontinence. No confusional state. She is wal aliyah around. She is slightly dehydrated also. Currently, her neuro exam is nonfocal. CT head showe d no acute intracranial abnormalities. PAST MEDICAL HISTORY: Asthma. PAST SURGICAL HISTORY: D and C. ALLERGIES: None. SOCIAL HISTORY: Former smoker, 1/2 a pack for 5 years. SOCIAL HISTORY: Alcohol use, past marijuana use. FAMILY HISTORY: Noncontributory. REVIEW OF SYSTEMS: A 14-point review of systems is negative except for the HPI. PHYSICAL EXAMINATION: VITAL SIGNS: Temperature of 97.7, pulse rate of 62, blood pressure 102/51, respiratory rate of 19, o xygen saturation 100% via room air. GENERAL: The patient is sitting up in bed in no acute distress. HEENT: Atraumatic, normocephalic. PERRLA. Extraocular muscles intact. NECK: Supple, no JVD, no adenopathy noted. LUNGS: Clear to auscultation. No adventitious sounds. HEART: S1, S2, normal rate and rhythm. No murmurs, rubs, or gallops. ABDOMEN: Soft, nontender, nondistended. Bowel sounds present. EXTREMITIES: No clubbing, no cyanosis. Peripheral pulses 2+ felt bilaterally. NEUROLOGIC: The patient is alert, oriented to person, place, month and year. Speech is fluent, with out any errors. Cranial nerves II through XII are intact. MOTOR: Moves all extremities equally. Toes are downgoing motion bilaterally. No pronator drift see n. SENSORY: Light touch, pinprick, proprioception, vibration intact. DTRs are 2+ throughout. COORDINATION: [id number] intact. GAIT: Deferred for now. LABORATORIES: Sodium is 139, potassium 4.2, chloride 108, carbon dioxide of 28, BUN of 15, creatinin e 0.7. Random glucose of 80. ASSESSMENT AND PLAN: This is a 25-year-old woman with past medical history of asthma, had a syncopal event. Her syncopal event seems most likely vasovagal in nature versus a cardiac etiology; neurolog y unlikely. Could get an outpatient echocardiogram from the aprn. Recommend to hydrate abilio rinaldit the day and continuing her albuterol p.r.n. for asthma. She is clinically stable for discharg e. Thank you for this consult. Oscar Lagunas MD cc: [id number] TT: 07/20/2016 13:10:56 Confirmation # [id number] Dictation # [id number] mn
--- NOTE | 2016-07-20 14:31 | CON ---
DATE: 07/20/2016 REQUESTING PHYSICIAN: Dr. Goldberg. REASON FOR CONSULTATION: Syncope. HISTORY OF PRESENT ILLNESS: This is a 25-year-old woman who has a prior history of childhood asthma who presented to the Emergency Room after an apparent syncopal episode. The patient was outdoors wit h family members when she began to feel dizzy. She states she had recently had dinner. She apparent ly lost consciousness briefly. This was witnessed. There was no evidence of seizure-like activity. She cannot identify any prodromal symptoms. In the Emergency Room, she complained of a brief sharp chest pain. Electrocardiogram was unremarkable. She was admitted for observation. She denies any p rior history of syncope. There is no family history of premature heart disease or sudden . PAST MEDICAL HISTORY: Notable for the problems mentioned above. She underwent a D and C as well. MEDICATIONS: She uses a bronchodilator inhaler now and then. ALLERGIES: None. SOCIAL HISTORY: She smokes a half pack per day. She drinks occasionally. FAMILY HISTORY: Mother is alive and has had a prior cerebrovascular accident and unspecified cardiac issues. Father's health history is unknown. REVIEW OF SYSTEMS: Ten point review of systems is otherwise unremarkable. PHYSICAL EXAMINATION: GENERAL: She is a thin young woman in no distress. VITAL SIGNS: Blood pressure is 102/50 with a pulse of 70 in sinus, respirations are 14. She is afeb rile. HEENT: Normocephalic, atraumatic. NECK: Supple, no JVD noted. CHEST: Clear to auscultation and percussion. HEART: PMI normal position. No pathologic murmur or gallops noted. ABDOMEN: Soft, nontender, normoactive bowel sounds. EXTREMITIES: No clubbing, cyanosis or edema. SKIN: Warm and dry. PSYCHIATRIC: Normal mood and affect. NEUROLOGIC: Alert and oriented x 3. No gross motor or sensory deficits appreciable. DIAGNOSTIC DATA: Potassium is initially 3.4, repeat is 4.3. BUN and creatinine are 15 and 0.7. Whi te count 4.3, hemoglobin and hematocrit are 11.1 and 33.7, platelet count 243,000. Cardiac enzymes w ere drawn and are negative. Cholesterol panel is normal. Toxicology screen was negative. Alcohol w as not detected. Electrocardiogram reveals sinus rhythm with an incomplete right bundle branch block and no acute abnormalities. Chest x-ray reveals normal cardiac silhouette with clear lung mcarthur. IMPRESSION: 1. Syncope, suspect benign vasovagal event given her age and the absence of any significant abnormal ities found on physical examination or testing. 2. History of tobacco abuse. 3. History of asthma. RECOMMENDATIONS: From a cardiac standpoint, discharge home would be reasonable. An echocardiogram c an be obtained as an outpatient. If she has recurrent symptoms, further evaluation can be arranged. Smoking abstinence was strongly encouraged. Thank you for this consultation. Nba Lane MD cc: [id number] TT: 07/20/2016 14:30:43 Confirmation # [id number] Dictation # [id number]
--- NOTE | 2016-07-21 01:39 | CARD ---
APPROVED REPORT EKG Measurement Heart [id number] <Conclusion> Normal sinus rhythm with sinus arrhythmia Incomplete right bundle branch block Borderline ECG
--- NOTE | 2016-07-21 01:40 | CARD ---
APPROVED REPORT EKG Measurement Heart [id number] <Conclusion> Normal sinus rhythm with sinus arrhythmia Normal ECG
== END 2016-07-20 14:56 | disposition home or self-care (01) ==
LOC: ED 18:32 → ERH 20:56 → MERGE 20:56 → ERH 22:36 → 2RNO 07-20 00:14
PROVIDERS: ADMIT Internal Medicine; ATTEND Internal Medicine
DX: I45.10 Unspecified right bundle-branch block (principal); R55 Syncope and collapse; R07.9 Chest pain, unspecified; F12.90 Cannabis use, unspecified, uncomplicated; J45.909 Unspecified asthma, uncomplicated; E86.0 Dehydration; F17.210 Nicotine dependence, cigarettes, uncomplicated; Z82.3 Family history of stroke
CPT/HCPCS: 36415; 70450; 71010; 80048; 80053; 80061; 80320; 80324; 80345; 80346; 80349; 80353; 80358; 80361; 81003; 82550; 82948; 83615; 83735; 83992; 84100; 84484; 85025; 85378; 93005; 96360; 99285; G0378; J7040

== ENCOUNTER 2016-07-26 15:49 | Emergency (ER) | payer OTHER ==
[2016-07-26 15:49] VITALS: BMI 22.3
[2016-07-26 15:55] VITALS: TEMP 98.8
[2016-07-26] MEDS ORDERED: Sodium Chloride 0.9% 1,000 ML IV STA (16:15)
--- NOTE | 2016-07-26 16:20 | ED PDOC ---
Arrival/HPI - General Chief Complaint: Abdominal Pain Time Seen by Provider: 07/26/16 15:56 Historian: Patient - History of Present Illness Narrative History of Present Illness (Text): 07/26/16 16:16 25yo female BIBA for chest pain, SOB and abdominal pain associated with nausea since this morning. Notes one episode of vomiting this morning. States her chest pain improved after using albuterol inhaler. she denies diaphoresis, LE edema, calf pain, recent travel, OCP use, recent surgery, dizziness, headache, ripping/tearing upper back pain, fever, chills, sick contact. Past Medical History - Provider Review Nursing Documentation Reviewed: Yes - Infectious Disease Hx of Infectious Diseases: None - Cardiac Hx Cardiac Disorders: No - Pulmonary Hx Asthma: Yes Hx Bronchitis: Yes - Neurological Hx Neurological Disorder: Yes (syncope) - HEENT Hx HEENT Disorder: No - Renal Hx Renal Disorder: No - Endocrine/Metabolic Hx Endocrine Disorders: No - Hematological/Oncological Hx Anemia: Yes - Integumentary Hx Dermatological Disorder: No - Musculoskeletal/Rheumatological Hx Musculoskeletal Disorders: No - Gastrointestinal Hx Gastrointestinal Disorders: No - Genitourinary/Gynecological Hx Genitourinary Disorders: Yes Other/Comment: hx left ovarian Cyst - Psychiatric Hx Anxiety: Yes Hx Substance Use: No - Surgical History Hx Dilation and Curettage: Yes (2015) - Anesthesia Hx Anesthesia: Yes Family/Social History - Physician Review Nursing Documentation Reviewed: Yes Family/Social History: Unknown Family HX Smoking Status: Former Smoker Hx Alcohol Use: No Hx Substance Use: No Allergies/Home Meds Allergies/Adverse Reactions: Allergies No Known Allergies Allergy (Verified 07/26/16 21:44) Home Medications: Home Meds Medication Instructions Recorded Confirmed Albuterol HFA [Ventolin HFA 90 2 puff INH PRN PRN 07/19/16 07/26/16 mcg/actuation (8 g)] Review of Systems - Physician Review All systems were reviewed & negative as marked: Yes - Review of Systems Constitutional: Normal Eyes: Normal ENT: Normal Respiratory: Normal Cardiovascular: Chest Pain Gastrointestinal: Abdominal Pain, Nausea. absent: Constipation, Diarrhea, Vomiting, Hematochezia, Hematemesis Genitourinary Female: Normal Musculoskeletal: Normal Skin: Normal Neurological: Normal Endocrine: Normal Hemo/Lymphatic: Normal Psychiatric: Normal Physical Exam Vital Signs Reviewed: Yes Vital Signs Temp Pulse Resp BP Pulse Ox 05/27/17 20:00 18 L 18 103/64 98 07/26/16 17:18 65 18 107/65 98 07/26/16 16:43 66 18 105/61 98 07/26/16 15:51 98.8 F 66 17 103/59 L 100 Temperature: Afebrile Blood Pressure: Normal Pulse: Regular Respiratory Rate: Normal Appearance: Positive for: Well-Appearing, Non-Toxic, Comfortable Pain Distress: None Mental Status: Positive for: Alert and Oriented X 3 - Systems Exam Head: Present: Atraumatic, Normocephalic Pupils: Present: PERRL Extroacular Muscles: Present: EOMI Conjunctiva: Present: Normal Mouth: Present: Moist Mucous Membranes Neck: Present: Normal Range of Motion Respiratory/Chest: Present: Clear to Auscultation, Good Air Exchange. No: Respiratory Distress, Accessory Muscle Use Cardiovascular: Present: Regular Rate and Rhythm, Normal S1, S2. No: Murmurs Abdomen: Present: Normal Bowel Sounds, Other (Soft). No: Tenderness, Distention , Peritoneal Signs, Rebound, Guarding, McBurney's Point Tender, Rovsing's Sign Present Back: Present: Normal Inspection Upper Extremity: Present: Normal Inspection. No: Cyanosis, Edema Lower Extremity: Present: Normal Inspection. No: Edema Neurological: Present: GCS=15, CN II-XII Intact, Speech Normal Skin: Present: Warm, Dry, Normal Color. No: Rashes Psychiatric: Present: Alert, Oriented x 3, Normal Insight, Normal Concentration Medical Decision Making ED Course and Treatment: 07/26/16 23:47 PT presented for stated history. She was comfortable and hemodynamically stable in ED. Her lab was unremarkable. Chest xray NAD EKg NSR with sinus arrhythmia @ 72bpm which was similar to her previous EKG. PT has been seen multiple times btw Buck, Cynthia and [facility] for same complaint. she states she have seen a Tour Manager and the next plan is getting holter monitor. Her result was DW hr. she was strongly advised to f/u with her Tour Manager., TRT ED for any new or worsening symptoms. - Lab Interpretations Lab Results: 07/26/16 16:50 07/26/16 16:50 Lab Results 07/26/16 18:40: Urine Color Yellow, Urine Appearance Clear, Urine pH 6.0, Ur Specific [place] 1.025, Urine Protein Negative, Urine Glucose (UA) Negative, Urine Ketones Negative, Urine Blood Negative, Urine Nitrate Negative, Urine Bilirubin Negative, Urine Urobilinogen 0.2, Ur Leukocyte Esterase Trace H, Urine RBC 0 - 2, Urine WBC 1 - 3, Ur Epithelial Cells Many, Amorphous Sediment Few, Urine Bacteria Many, Urine Other Uyeast 07/26/16 16:50: Sodium 138, Potassium 3.4 L, Chloride 107, Carbon Dioxide 26, Anion Gap 8 L, BUN 10, Creatinine 0.7, Est GFR ( Amer) > 60, Est GFR (Non -Af Amer) > 60, Random Glucose 104, Calcium 8.4, Total Bilirubin 0.3, AST 19, ALT 25, Alkaline Phosphatase 61, Lactate Dehydrogenase 322 L, Total Creatine Kinase 35, Troponin I < 0.01, Total Protein 5.8, Albumin 3.2, Globulin 2.6, Albumin/Globulin Ratio 1.2, Lipase 212 07/26/16 16:50: PT 11.4, INR 1.06, APTT 25.2, D-Dimer, Quantitative 0.20 07/26/16 16:50: WBC 4.0 L, RBC 3.95, Hgb 10.1 L, Hct 31.2 L, MCV 79.0 L, MCH 25.6, MCHC 32.4, RDW 13.8, Plt Count 223, MPV 10.1, Gran % 50.3, Lymph % (Auto) 39.8 H, Terrell % (Auto) 8.2 H, Eos % (Auto) 1.2 L, Baso % (Auto) 0.5, Gran # 2.02 , Lymph # 1.6, Terrell # 0.3, Eos # 0.1, Baso # 0.02 - RAD Interpretation Radiology Orders: 07/26/16 18:35 CHEST PORTABLE [RAD] Stat - EKG Interpretation Interpreted by ED Physician: Yes (NSR with sinus arrhythmia @72bpm) Comparison: Similar to previous EKG - Medication Orders Current Medication Orders: Discontinued Medications Albuterol Sulfate (Albuterol 0.083% Inhal Shalini (2.5 Mg/3 Ml) Ud) 2.5 mg IH STAT STA Stop: 07/26/16 18:20 Last Admin: 07/26/16 19:02 Dose: Not Given Non-Admin Reason: Patient Refused Sodium Chloride (Sodium Chloride 0.9%) 1,000 mls @ 1,000 mls/hr IV .Q1H STA Stop: 07/26/16 17:14 Last Admin: 07/26/16 16:48 Dose: 1,000 mls/hr Ondansetron HCl (Zofran Inj) 4 mg IVP STAT STA Stop: 07/26/16 16:16 Last Admin: 07/26/16 16:47 Dose: 4 mg Tramadol HCl (Ultram) 50 mg PO STAT STA Stop: 07/26/16 19:31 Last Admin: 07/26/16 19:44 Dose: 50 mg Disposition/Present on Arrival - Present on Arrival Any Indicators Present on Arrival: No History of DVT/PE: No History of Uncontrolled Diabetes: No Urinary Catheter: No History of Decub. Ulcer: No History Surgical Site Infection Following: None - Disposition Have Diagnosis and Disposition been Completed?: Yes Diagnosis: Acute chest pain, Abdominal pain Disposition: HOME/ ROUTINE Disposition Time: 19:00 Patient Plan: Discharge Condition: STABLE Discharge Instructions (ExitCare): Chest Pain (ED) Additional Instructions: Follow up with your Doctor/Tour Manager Return to ED for any new or worsening symptoms Referrals: Francine Peters DO [Primary Care Provider] - Follow up with primary
[2016-07-26 16:44] VITALS: RESP 18; O2SAT 98
[2016-07-26 17:06] LABS: ADD MANUAL DIFF? NO
[2016-07-26 17:19] LABS: ALB/GLOB RATIO 1.2 (1.1-1.8); ALKALINE PHOSPHATASE 61 U/L (38-133); ALT/SGPT 25 U/L (7-56); AST/SGOT 19 U/L (15-39); BILIRUBIN,TOTAL 0.3 mg/dL (0.2-1.3); BLOOD UREA NITROGEN 10 mg/dL (7-21); CALCIUM 8.4 mg/dL (8.4-10.5); CARBON DIOXIDE 26 mmol/L (21-33); CHLORIDE 107 mmol/L (98-107); GFR AFRICAN-AMERICAN > 60; GLUCOSE,RANDOM 104 mg/dL (70-110); LIPASE 212 U/L (23-300); POTASSIUM 3.4 mmol/L (3.6-5.0); SODIUM 138 mmol/L (132-148); TOTAL PROTEIN 5.8 g/dL (5.8-8.3)
[2016-07-26 17:30] LABS: TROPONIN I < 0.01 ng/mL
[2016-07-26 17:53] LABS: BASO # 0.02 K/mm3 (0.0-2.0); BASO % 0.5 % (0.0-3.0); EOS # 0.1 (0.0-0.7); EOS % 1.2 % (1.5-5.0); GRAN # 2.02 (1.4-6.5); GRAN % 50.3 % (50.0-68.0); HEMATOCRIT 31.2 % (36.0-48.0); LYMPH # 1.6 (1.2-3.4); LYMPH % 39.8 % (22.0-35.0); MEAN CORPUSCULAR HEMOGLOBIN 25.6 pg (25.0-35.0); MEAN CORPUSCULAR HGB CONC 32.4 g/dl (31.0-37.0); MEAN PLATELET VOLUME 10.1 fl (7.0-11.0); MONO # 0.3 (0.1-0.6); MONO % 8.2 % (1.0-6.0); PLATELET COUNT 223 10^3/uL (120.0-450.0); RED CELL DISTRIBUTION WIDTH 13.8 % (11.5-14.5)
[2016-07-26] MEDS ORDERED: Albuterol 0.083% Inhal Sol (2.5 mg/3 mL) UD IH STA (18:19)
[2016-07-26 18:22] LABS: INR 1.06 (0.93-1.08); PARTIAL THROMBOPLASTIN TIME 25.2 Seconds (23.7-30.8)
[2016-07-26 18:23] LABS: D DIMER 0.2 mg/L FEU (0-0.50)
[2016-07-26 18:49] LABS: URINE BILIRUBIN NEGATIVE (NEGATIVE); URINE BLOOD NEGATIVE (NEGATIVE); URINE GLUCOSE (UA) NEGATIVE (NEGATIVE); URINE KETONE NEGATIVE (NEGATIVE); URINE LEUKOCYTE ESTERASE TRACE Leu/uL (NEGATIVE); URINE PROTEIN NEGATIVE mg/dL (<30 mg/dL); URINE UROBILINOGEN 0.2 E.U./dL (<1 E.U./dL)
[2016-07-26 18:57] LABS: URINE COLOR YELLOW (YELLOW)
[2016-07-26 18:58] LABS: URINE APPEARANCE CLEAR (CLEAR)
[2016-07-26 19:01] LABS: URINE BACTERIA MANY (NEG); URINE EPITHELIAL CELLS MANY /hpf (0-5); URINE RBC 0 - 2 /hpf (0-2)
[2016-07-26 19:02] LABS: URINE AMORPHOUS SEDIMENT FEW
[2016-07-26 20:01] VITALS: BP 103/64; PULSE 18
--- NOTE | 2016-07-27 09:31 | RAD ---
HISTORY: chest pain COMPARISON: 07/19/2016 FINDINGS: LUNGS: No active pulmonary disease. PLEURA: No significant pleural effusion identified, no pneumothorax apparent. CARDIOVASCULAR: Normal. OSSEOUS STRUCTURES: No significant abnormalities. VISUALIZED UPPER ABDOMEN: Normal. OTHER FINDINGS: None. IMPRESSION: No active disease.
--- NOTE | 2016-07-27 12:09 | CARD ---
APPROVED REPORT EKG Measurement Heart [id number] CT [id number] <Conclusion> Normal sinus rhythm with sinus arrhythmia Normal ECG
== END 2016-07-26 20:00 | disposition home or self-care (01) ==
LOC: ED 15:49
DX: R07.9 Chest pain, unspecified (principal); R10.9 Unspecified abdominal pain
CPT/HCPCS: 71010; 80053; 81001; 82550; 83615; 83690; 84484; 85025; 85378; 85610; 85730; 87086; 93005; 96374; 99283; J2405; J7040

== ENCOUNTER 2016-07-29 21:16 | Observation (INO) | payer OTHER ==
[2016-07-29 21:28] VITALS: BMI 21.2
--- NOTE | 2016-07-29 22:06 | ED PDOC ---
Arrival/HPI - General Chief Complaint: Syncope Time Seen by Provider: 07/29/16 21:34 Historian: Patient - History of Present Illness Narrative History of Present Illness (Text): 07/29/16 22:06 Wendi Acevedo is a 25 year old female, whose past medical history includes asthma, who presents to the Emergency departments accompanied by friend status post syncopal episode. Patient states she went to the bathroom tonight, lost consciousness, and hit her head. Patient states she has not been feeling well throughout the day with associated fever, nausea, multiple episodes of vomiting , and chest discomfort. Family note patient had a fever of 102 at home and took Ibuprofen. Patient states she has a slight headache with nausea currently. Patient denies any chills, shortness of breath, diarrhea, urinary symptoms, back pain, neck pain, dizziness, or any other complaints. Time/Duration: Other (today) Symptom Onset: Gradual Symptom Course: Unchanged Activities at Onset: Rest, Light Context: Home Past Medical History - Provider Review Nursing Documentation Reviewed: Yes - Infectious Disease Hx of Infectious Diseases: None - Cardiac Hx Cardiac Disorders: No - Pulmonary Hx Respiratory Disorders: Yes Hx Asthma: Yes - Neurological Hx Neurological Disorder: Yes (syncope) - HEENT Hx HEENT Disorder: No - Renal Hx Renal Disorder: No - Endocrine/Metabolic Hx Endocrine Disorders: No - Hematological/Oncological Hx Blood Disorders: Yes Hx Anemia: Yes - Integumentary Hx Dermatological Disorder: No - Musculoskeletal/Rheumatological Hx Musculoskeletal Disorders: No - Gastrointestinal Hx Gastrointestinal Disorders: No - Genitourinary/Gynecological Hx Genitourinary Disorders: Yes Other/Comment: hx left ovarian Cyst - Psychiatric Hx Psychophysiologic Disorder: Yes Hx Anxiety: Yes Hx Substance Use: No (denies) - Surgical History Hx Dilation and Curettage: Yes (2016) - Anesthesia Hx Anesthesia: Yes Family/Social History - Physician Review Nursing Documentation Reviewed: Yes Family/Social History: No Known Family HX Smoking Status: Former Smoker Hx Alcohol Use: No (denies) Hx Substance Use: No (denies) Allergies/Home Meds Allergies/Adverse Reactions: Allergies No Known Allergies Allergy (Verified 07/26/16 21:44) Home Medications: Home Meds Medication Instructions Recorded Confirmed Albuterol HFA [Ventolin HFA 90 2 puff INH PRN PRN 07/19/16 07/29/16 mcg/actuation (8 g)] Review of Systems - Physician Review All systems were reviewed & negative as marked: Yes - Review of Systems Constitutional: Fevers Eyes: Normal ENT: Normal Respiratory: Normal. absent: SOB, Cough Cardiovascular: Chest Pain, Syncope Gastrointestinal: Nausea, Vomiting. absent: Abdominal Pain, Diarrhea Genitourinary Female: Normal. absent: Dysuria, Frequency, Hematuria, Urine Output Changes Musculoskeletal: Normal. absent: Back Pain, Neck Pain Skin: Normal. absent: Rash Neurological: Headache. absent: Dizziness Endocrine: Normal Hemo/Lymphatic: Normal Psychiatric: Normal Physical Exam Vital Signs Reviewed: Yes Vital Signs Temp Pulse Resp BP Pulse Ox 07/30/16 00:39 98.0 F 77 16 99 07/29/16 21:28 98.3 F 71 16 102/57 L 100 Temperature: Afebrile Blood Pressure: Normal Pulse: Regular Respiratory Rate: Normal Appearance: Positive for: Well-Appearing, Non-Toxic, Comfortable Pain Distress: None Mental Status: Positive for: Alert and Oriented X 3 - Systems Exam Head: Present: Atraumatic, Normocephalic Pupils: Present: PERRL Extroacular Muscles: Present: EOMI Conjunctiva: Present: Normal Mouth: Present: Moist Mucous Membranes Neck: Present: Normal Range of Motion Respiratory/Chest: Present: Clear to Auscultation, Good Air Exchange. No: Respiratory Distress, Accessory Muscle Use Cardiovascular: Present: Regular Rate and Rhythm, Normal S1, S2. No: Murmurs Abdomen: Present: Normal Bowel Sounds. No: Tenderness, Distention, Peritoneal Signs Back: Present: Normal Inspection Upper Extremity: Present: Normal Inspection. No: Cyanosis, Edema Lower Extremity: Present: Normal Inspection. No: Edema Neurological: Present: GCS=15, CN II-XII Intact, Speech Normal Skin: Present: Warm, Dry, Normal Color. No: Rashes Psychiatric: Present: Alert, Oriented x 3, Normal Insight, Normal Concentration Medical Decision Making ED Course and Treatment: 07/29/16 22:06 Impression: 25 year old female presents s/p syncopal episode. Differential Diagnosis include but are not limited to: syncope Plan: -- CT Head w/o contrast -- EKG -- Chest X-ray -- Labs, cardiac enzymes, lipase -- Urinalysis -- IV fluids -- Zofran -- Pepcid -- Reassess and disposition Prior Visits: Notes and results from previous visits were reviewed. Progress Notes: Reviewed EKG, NSR at [address]-segment elevations or depressions, no T-wave inversions, normal intervals. 07/30/16 01:58 Reviewed radiology, Chest X-ray shows no active disease. CT Head shows: No acute intracranial abnormality. 07/30/16 02:08 Case discussed with medical auditor referral and information aide, who is aware and agrees with plan. House physician notified. 07/30/16 02:[address] Brooke, who is aware and agrees with plan. Accepts pt in to hospitalist service. Pt will go to remote telemetry observation for syncope and intractable vomiting. - Lab Interpretations Lab Results: 07/29/16 22:35 07/29/16 22:35 Lab Results 07/30/16 00:11: Urine Color Yellow, Urine Appearance Sl cloudy, Urine pH 7.0, Ur Specific [place] 1.025, Urine Protein Trace H, Urine Glucose (UA) Negative, Urine Ketones Negative, Urine Blood Negative, Urine Nitrate Negative, Urine Bilirubin Negative, Urine Urobilinogen 1.0 H, Ur Leukocyte Esterase Negative, Urine RBC 0 - 2, Urine WBC 1 - 3, Ur Epithelial Cells 4 - 5, Urine Bacteria Small, Urine HCG, Qual Negative 07/29/16 22:35: WBC 4.2 L, RBC 4.42, Hgb 11.5 L, Hct 34.6 L, MCV 78.3 L, MCH 26.0, MCHC 33.2, RDW 13.6, Plt Count 249, MPV 9.9 07/29/16 22:35: Sodium 139, Potassium 3.9, Chloride 107, Carbon Dioxide 26, Anion Gap 10, BUN 9, Creatinine 0.6, Est GFR ( Amer) > 60, Est GFR (Non- Af Amer) > 60, Random Glucose 91, Calcium 8.7, Total Bilirubin 0.4, AST 22, ALT 28, Alkaline Phosphatase 60, Lactate Dehydrogenase 439, Total Creatine Kinase 46 , Troponin I < 0.01, Total Protein 6.6, Albumin 3.7, Globulin 2.8, Albumin/ Globulin Ratio 1.3, Lipase 292 I have reviewed the lab results: Yes - RAD Interpretation Narrative RAD Interpretations (Text): Chest X-ray shows no active disease. CT Head shows: Brain: Ventricles are normal in size and configuration. There is no midline shift. There are no intraaxial or extra-axial mass lesions or areas of hemorrhage. There are no abnormal fluid collections. [place]-white differentiation is maintained. Ventricles: See above. Bones: Cranial vault is intact. Soft tissues: unremarkable Sinuses: There is no acute sinusitis. Ears and mastoids: Middle ears and mastoids are unremarkable Orbits: Orbital contents are incompletely imaged IMPRESSION: No acute intracranial abnormality. Radiology Orders: 07/29/16 22:10 HEAD W/O CONTRAST [CT] Stat CHEST PORTABLE [RAD] Stat Ball Thread Machine Tender: ED Physician, Radiologist - EKG Interpretation Interpreted by ED Physician: Yes Type: 12 lead EKG - Medication Orders Current Medication Orders: Discontinued Medications Famotidine (Pepcid) 20 mg IVP STAT STA Stop: 07/29/16 22:14 Last Admin: 07/29/16 23:34 Dose: 20 mg Sodium Chloride (Sodium Chloride 0.9%) 1,000 mls @ 999 mls/hr IV .Q1H1M STA Stop: 07/29/16 23:13 Last Admin: 07/29/16 23:48 Dose: Not Given Non-Admin Reason: Patient Refused Metoclopramide HCl (Reglan) 10 mg IVP ONCE ONE Stop: 07/30/16 00:44 Last Admin: 07/30/16 01:13 Dose: Not Given Non-Admin Reason: Patient Refused Ondansetron HCl (Zofran Inj) 4 mg IVP ONCE ONE Stop: 07/29/16 22:14 Last Admin: 07/29/16 23:34 Dose: 4 mg Ondansetron HCl (Zofran Inj) 4 mg IVP ONCE ONE Stop: 07/30/16 02:02 Pantoprazole Sodium (Protonix Inj) 40 mg IVP ONCE STA Stop: 07/30/16 00:44 Last Admin: 07/30/16 01:14 Dose: 40 mg - Scribe Statement The provider has reviewed the documentation as recorded by the Aurelio Cancino All medical record entries made by the Carmencitaibguanako were at my direction and personally dictated by me. I have reviewed the chart and agree that the record accurately reflects my personal performance of the history, physical exam, medical decision making, and the department course for this patient. I have also personally directed, reviewed, and agree with the discharge instructions and disposition. Disposition/Present on Arrival - Present on Arrival Any Indicators Present on Arrival: No History of DVT/PE: No History of Uncontrolled Diabetes: No Urinary Catheter: No History of Decub. Ulcer: No History Surgical Site Infection Following: None - Disposition Have Diagnosis and Disposition been Completed?: Yes Diagnosis: Syncope, Intractable vomiting Disposition: HOSPITALIZED Disposition Time: 02:10 Patient Plan: Observation Patient Problems: Current Active Problems Problem Status Onset Intractable vomiting Acute Syncope Acute Condition: STABLE Discharge Instructions (ExitCare): Syncope (ED)
[2016-07-29 22:44] LABS: HEMATOCRIT 34.6 % (36.0-48.0); MEAN CELL VOLUME 78.3 fL (80.0-105.0); MEAN CORPUSCULAR HGB CONC 33.2 g/dl (31.0-37.0); MEAN PLATELET VOLUME 9.9 fl (7.0-11.0); RED CELL DISTRIBUTION WIDTH 13.6 % (11.5-14.5); WHITE BLOOD COUNT 4.2 10^3/ul (4.5-11.0)
[2016-07-29 23:00] LABS: ALB/GLOB RATIO 1.3 (1.1-1.8); ALKALINE PHOSPHATASE 60 U/L (38-133); ALT/SGPT 28 U/L (7-56); AST/SGOT 22 U/L (15-39); BILIRUBIN,TOTAL 0.4 mg/dL (0.2-1.3); BLOOD UREA NITROGEN 9 mg/dL (7-21); CALCIUM 8.7 mg/dL (8.4-10.5); CARBON DIOXIDE 26 mmol/L (21-33); CHLORIDE 107 mmol/L (98-107); GFR AFRICAN-AMERICAN > 60; GLUCOSE,RANDOM 91 mg/dL (70-110); LIPASE 292 U/L (23-300); POTASSIUM 3.9 mmol/L (3.6-5.0); SODIUM 139 mmol/L (132-148); TOTAL PROTEIN 6.6 g/dL (5.8-8.3)
[2016-07-29 23:12] LABS: TROPONIN I < 0.01 ng/mL
[2016-07-29] MEDS: Sodium Chloride 0.9% 1,000 ML IV STA ×2 (23:34→23:48)
[2016-07-30 01:10] LABS: URINE BILIRUBIN NEGATIVE (NEGATIVE); URINE BLOOD NEGATIVE (NEGATIVE); URINE GLUCOSE (UA) NEGATIVE (NEGATIVE); URINE KETONE NEGATIVE (NEGATIVE); URINE LEUKOCYTE ESTERASE NEGATIVE Leu/uL (NEGATIVE); URINE PROTEIN TRACE mg/dL (<30 mg/dL)
[2016-07-30 01:15] LABS: URINE APPEARANCE SL CLOUDY (CLEAR); URINE COLOR YELLOW (YELLOW)
[2016-07-30 01:19] LABS: URINE RBC 0 - 2 /hpf (0-2)
[2016-07-30 01:20] LABS: URINE BACTERIA SMALL (NEG)
--- NOTE | 2016-07-30 01:26 | CT ---
EXAM: CT Head Without Intravenous Contrast CLINICAL HISTORY: 25 years old, female; Signs and symptoms; Syncope and collapse TECHNIQUE: Axial computed tomography images of the head/brain without intravenous contrast. This CT exam was performed using one or more of the following dose reduction techniques: automated exposure control, adjustment of the mA and/or kV according to patient size, and/or use of iterative reconstruction technique. EXAM DATE/TIME: 07/29/2016 10:10 PM COMPARISON: CT - HEAD W/O CONTRAST 07/19/2016 7:25:12 PM FINDINGS: Brain: Ventricles are normal in size and configuration. There is no midline shift. There are no intra-axial or extra-axial mass lesions or areas of hemorrhage. There are no abnormal fluid collections. [place]-white differentiation is maintained. Ventricles: See above. Bones: Cranial vault is intact. Soft tissues: unremarkable Sinuses: There is no acute sinusitis. Ears and mastoids: Middle ears and mastoids are unremarkable Orbits: Orbital contents are incompletely imaged IMPRESSION: No acute intracranial abnormality
[2016-07-30] MEDS ORDERED: Sodium Chloride 0.9% 1,000 ML IV SCH (04:00)
--- NOTE | 2016-07-30 06:15 | CP.PCM.HP ---
<Maia Feldman - Last Filed: 07/30/16 06:58> History of Present Illness - History of Present Illness History of Present Illness: PGY-1 h&P 25 yo female with PMH of asthma presented to ED after syncopal episode. Patient state that on her way to the bathroom she had loss of consciousness. The episode was not witnessed. She states that she did hit her head. Patient has had previous episodes of syncope. She has been see in [facility] before. Patient state she has not been feeling well for the past 2 days. She has been experience vomiting for 2 days. She denies eating anything unusual. Denies blood in the vomit. She also reports fever at home of 103, patient states she took ibuprofen and her fever resolved. She continues to report diffuse, dull chest discomfort that has been occur for awhile. She states that she saw a diabetes educator recently and was recommended to have monitor placed. She denies weakness, shortness of breath, diarrhea, urinary symptoms. PMHx: Asthma PSHx: D&C Allergy: metoclopramide Social Hx: Former smoker (1/2 pack x 5yrs), social alcohol use, denies current illicit drug use Family Hx: mother-multiple CVA, unknown congenital cardiac condition Home meds: albuterol Present on Admission - Present on Admission Any Indicators Present on Admission: No Review of Systems - Constitutional Constitutional: absent: Chills, Fever - EENT Nose/Mouth/Throat: absent: Nasal Congestion, Sore Throat - Cardiovascular Cardiovascular: Chest Pain. absent: Diaphoresis, Dyspnea, Palpitations - Respiratory Respiratory: absent: Cough, Dyspnea, Hemoptysis - Gastrointestinal Gastrointestinal: Abdominal Pain, Nausea, Vomiting. absent: Constipation, Diarrhea - Genitourinary Genitourinary: absent: Difficulty Urinating, Dysuria, Hematuria, Urinary Frequency - Musculoskeletal Musculoskeletal: absent: Arthralgias, Muscle Weakness, Myalgias - Integumentary Integumentary: absent: Rash, Skin Ulcer, Sores, Wounds - Neurological Neurological: Syncope. absent: Dizziness, Headaches, Weakness - Hematologic/Lymphatic Hematologic: absent: Easy Bleeding, Easy Bruising Past Patient History - Infectious Disease Hx of Infectious Diseases: None - Past Social History Smoking Status: Former Smoker Alcohol: None Drugs: Denies - CARDIAC Hx Cardiac Disorders: No - PULMONARY Hx Asthma: Yes Hx Bronchitis: Yes - NEUROLOGICAL Hx Neurological Disorder: Yes (Multiple syncopal episodes) - HEENT Hx HEENT Problems: No - RENAL Hx Chronic Kidney Disease: No - ENDOCRINE/METABOLIC Hx Endocrine Disorders: No - HEMATOLOGICAL/ONCOLOGICAL Hx Anemia: Yes - INTEGUMENTARY Hx Dermatological Problems: No - MUSCULOSKELETAL/RHEUMATOLOGICAL Hx Falls: Yes - GASTROINTESTINAL Hx Gastrointestinal Disorders: No - GENITOURINARY/GYNECOLOGICAL Hx Genitourinary Disorders: Yes Other/Comment: hx left ovarian Cyst - PSYCHIATRIC Hx Psychophysiologic Disorder: Yes (Former smoker) Hx Anxiety: Yes - SURGICAL HISTORY Hx Surgeries: Yes (D&C 2015) - ANESTHESIA Hx Anesthesia: Yes Meds Allergies/Adverse Reactions: Allergies Allergy/AdvReac Type Severity Reaction Status Date / Time metoclopramide [From Reglan] AdvReac SHORTNESS Verified 07/30/16 02:38 OF BREATH Physical Exam - Constitutional Appears: Well, No Acute Distress - Head Exam Head Exam: ATRAUMATIC, NORMOCEPHALIC - Eye Exam Eye Exam: Normal appearance - ENT Exam ENT Exam: Mucous Membranes Moist - Neck Exam Neck exam: Positive for: Full Rom, Normal Inspection. Negative for: Tenderness - Respiratory Exam Respiratory Exam: Clear to Auscultation Bilateral, NORMAL BREATHING PATTERN. absent: Rhonchi, Wheezes, Respiratory Distress - Cardiovascular Exam Cardiovascular Exam: REGULAR RHYTHM, +S1, +S2. absent: Tachycardia, Diastolic murmur, Systolic Murmur - GI/Abdominal Exam GI & Abdominal Exam: Normal Bowel Sounds, Soft. absent: Distended, Firm, Guarding, Tenderness - Neurological Exam Neurological exam: Alert, Oriented x3 - Skin Skin Exam: Dry, Intact, Normal Color, Warm Results - Vital Signs Recent Vital Signs: Last Vital Signs Temp 98.9 F 07/30/16 02:55 Pulse 77 07/30/16 03:33 Resp 18 07/30/16 03:39 BP 94/43 L 07/30/16 02:55 Pulse Ox 99 07/30/16 03:33 - Labs Result Diagrams: 07/29/16 22:35 07/29/16 22:35 Assessment & Plan - Assessment and Plan (Free Text) Assessment: 25 yo female with PMH of asthma presented to ED after syncopal episode and intractable nausea and vomiting. Plan: 1. syncope - admitted to tele - pt is hypotensive in ED, bolus given - IVF NS @100 - orthostatics ordered - cardotid US - echo - neurology consulted - cardiology consulted 2. intractable nausea/vomiting - IVF NS@100 - zofran prn 3. asthma - cont home med albuterol ppx GI- protonix DVT- SCDs <BrookeAkila rajanreza - Last Filed: 07/30/16 19:21> Results - Vital Signs Recent Vital Signs: Last Vital Signs Temp 98.7 F 07/30/16 12:00 Pulse 73 07/30/16 18:00 Resp 20 07/30/16 12:00 BP 103/56 L 07/30/16 12:00 Pulse Ox 100 07/30/16 06:00 - Labs Result Diagrams: 07/29/16 22:35 07/29/16 22:35 Attending/Attestation - Attestation I have personally seen and examined this patient.: Yes I have fully participated in the care of the patient.: Yes I have reviewed all pertinent clinical information: Yes Notes (Text): 07/30/16 19:20 Agree with history , physical examination, assessment and plan.
[2016-07-30] MEDS ORDERED: Albuterol 0.083% Inhal Sol (2.5 mg/3 mL) UD IH SCH (08:00)
--- NOTE | 2016-07-30 08:03 | RAD ---
HISTORY: syncope COMPARISON: No prior. FINDINGS: LUNGS: No active pulmonary disease. PLEURA: No significant pleural effusion identified, no pneumothorax apparent. CARDIOVASCULAR: Normal. OSSEOUS STRUCTURES: No significant abnormalities. VISUALIZED UPPER ABDOMEN: Normal. OTHER FINDINGS: None. IMPRESSION: No active disease.
[2016-07-30] MEDS ORDERED: Sodium Chloride 0.9% 1,000 ML IV ONE (09:24)
[2016-07-30] MEDS: Pantoprazole 40 mg EC Tab PO SCH (10:02)
--- NOTE | 2016-07-30 12:10 | CON ---
DATE: 07/30/2016 NEUROLOGY CONSULT CHIEF COMPLAINT: Syncope. HISTORY OF PRESENT ILLNESS: This is a 25-year-old woman with past medical history of asthma had a sy ncopal episode. She was on her way to the bathroom when she lost consciousness. She said she had so me mild chest pain prior to the episode and some palpitations, and had a syncopal event. No history of any trauma to the brain. No history of seizures or meningitis in the past. I recently had seen her on 07/20/2016 and had a similar episode, mostly vasovagal, but no postictal co nfusion. She had low systolic and diastolic blood pressures at that time. I recommended her to foll ow with a vice president of instruction for an echocardiogram at that time. Currently, she is sitting up and n. No further events. She ate her breakfast without any issues. S he still describes some mild chest discomfort. She is currently on a heart monitor. No focal weakne ss, tingling, or numbness in the extremities. No confusional episodes. PAST MEDICAL HISTORY: Asthma. PAST SURGICAL HISTORY: D and C. ALLERGIES: METOCLOPRAMIDE. SOCIAL HISTORY: Former smoker, half a pack of cigarettes 5 years. Social alcohol use. Denies any i llicit drug use. FAMILY HISTORY: Noncontributory. HOME MEDICATION: Albuterol. REVIEW OF SYSTEMS: A 14-point review of systems is negative except for in the HPI. PHYSICAL EXAMINATION: VITAL SIGNS: Temperature of 98.7, pulse rate 58, blood pressure 9____/47, respiratory rate of 20, ox ygen saturation 100% on room air. GENERAL: The patient is sitting up in bed in no acute distress. HEENT: Atraumatic, normocephalic. PERRLA. Extraocular muscles intact. NECK: Supple. No JVD, no adenopathy noted. LUNGS: Clear to auscultation. No adventitious sounds. HEART: S1, S2, normal rate and rhythm. No murmurs, rubs, or gallops. ABDOMEN: Soft, nontender, nondistended. Bowel sounds are present. EXTREMITIES: No clubbing, no cyanosis. Peripheral pulses are 2+ felt bilaterally. NEUROLOGIC: The patient is alert, oriented to person, place, month, and year. Speech is fluent with out any errors. Cranial nerves II-XII are intact. MOTOR: Moves all extremities equally. Toes are downgoing bilaterally. SENSORY: Light touch, pinprick, proprioception, vibration intact. DTRs 2+ throughout. COORDINATION: [id number] intact. GAIT: Deferred for now. LABORATORY DATA: Sodium is 139, potassium 3.9, chloride 107, carbon dioxide 26, BUN of 9, creatinine 0.6. Random glucose 91. ASSESSMENT AND PLAN: A 25-year-old woman with past medical history of asthma, history of syncopal ev ent on 07/20/2016, vasovagal type presents to the Emergency Department after a syncopal episode with c hest discomfort, palpitation, intractable nausea and vomiting. She was found to have low systolic an d diastolic blood pressures. At this time, I feel like her syncopal event is secondary to transient cerebral hypoperfusion to the brain, not a seizure disorder. I think there is more of a cardiac and needs possibly an echocardiogram, as well as a possible loop recorder placement to assess for any abn ormal arrhythmias causing the syncopal episode. At this time, recommend possible outpatient tilt tab le test IV hydration, and can follow up in the office as needed. At this time, continue current [facility] management. No further neurological workup at this time. We will sign off. Oscar Lagunas MD cc: [phone] TT: 07/30/2016 12:09:32 Confirmation # [id number] Dictation # [id number] john
[2016-07-30] MEDS: Albuterol 0.083% Inhal Sol (2.5 mg/3 mL) UD IH SCH ×2 (13:44→20:15)
[2016-07-30] MEDS: Sodium Chloride 0.9% 1,000 ML IV SCH (14:47)
--- NOTE | 2016-07-30 14:48 | US ---
PROCEDURE: Bilateral carotid artery duplex ultrasound HISTORY: Carotid stenosis syncope PHYSICIAN(S): Afshin Jean MD. TECHNIQUE: Duplex sonography and color-flow Doppler were used to evaluate the carotid bifurcations and limited segments of the vertebral arteries bilaterally. FINDINGS: There is minimal intimal- medial thickening noted at the carotid bifurcations bilaterally. The peak systolic velocity in the proximal right internal carotid artery is 88 cm/sec. This corresponds to a 0-19 percent proximal right ICA stenosis. Normal systolic velocities are noted in the proximal right external carotid artery. There is antegrade flow in the right vertebral artery. The peak systolic velocity in the proximal left internal carotid artery is 95 cm/sec. This corresponds to a 0-19 percent proximal left ICA stenosis. Normal systolic velocities are noted in the proximal left external carotid artery. There is antegrade flow in the left vertebral artery. IMPRESSION: 1. Bilateral 0-19 percent proximal ICA stenoses. 2. Antegrade flow in both vertebral arteries.
--- NOTE | 2016-07-30 18:33 | CON ---
DATE: 07/30/2016 HISTORY OF PRESENT ILLNESS: The patient is a 25-year-old woman who had incessant vomiting and nausea , resulted in some dizziness. No loss of consciousness noted. The patient is free of cardiac disease in the past. PAST MEDICAL HISTORY: Includes a history of being placed on beta-blockers by her primary care doctor for increased heart rate, and which the patient never took, several years ago. There is no other pr evious cardiac history. No shortness of breath. No chest pain. The patient is free of high blood p ressure or diabetes mellitus. MEDICATIONS: Her only medication is albuterol at home for questionable reasons. SOCIAL HISTORY: Denies smoking. REVIEW OF SYSTEMS: A 14-point review of systems is all negative. PHYSICAL EXAMINATION: VITAL SIGNS: Blood pressure is 103/56, the heart rate is in the 60s, normal sinus rhythm. NECK: Negative JVD. LUNGS: Without rales. HEART: Reveals S1, S2. EXTREMITIES: Without edema. LABORATORIES: The hemoglobin is 11.5. Chemistries are unremarkable with a negative troponin. EKG is unremarkable. IMPRESSION: 1. Incessant nausea. 2. Dizziness. 3. Questionable history of bronchospasm. Given these findings, there is no evidence for cardiac issues at this time. An echocardiogram was do ne. Given these findings, there is no evidence for a cardiac cause of her symptoms. Will monitor on telemetry for 24 hours. Will check the echocardiogram. Afshin Shine MD cc: [id number] TT: 07/30/2016 18:32:47 Confirmation # [id number] Dictation # [id number]
--- NOTE | 2016-07-30 21:40 | CARD ---
APPROVED REPORT EXAM: Two-dimensional and M-mode echocardiogram with Doppler and color Doppler. INDICATION Syncope 2D DIMENSIONS Left Atrium (2D)3.1 (1.6-4.0cm)IVSd0.9 (0.7-1.1cm) LVDd4.2 (3.9-5.9cm)PWd0.8 (0.7-1.1cm) LVDs2.6 (2.5-4.0cm)FS (%) 38.5 % LVEF (%)69.1 (>50%) M-Mode DIMENSIONS Aortic Root2.10 (2.2-3.7cm)Aortic Cusp Exc.1.70 (1.5-2.0cm) Aortic Valve AoV Peak Drpvzuax802.0cm/Micki Peak GR.6mmHg Mitral Valve MV E Fgcmimdy420.0cm/sMV A Mkfymtst92.2cm/sE/A ratio1.8 TDI E/Lateral E'0.0E/Medial E'0.0 Tricuspid Valve TR Peak [id number]/sRAP [id number] Peak Gr.13mmHg [id number] LEFT VENTRICLE The left ventricle is normal size. There is normal left ventricular wall thickness. The left ventricular function is normal. The left ventricular ejection fraction is within the normal range. There is normal LV segmental wall motion. The left ventricular diastolic function is normal. RIGHT VENTRICLE The right ventricle is normal size. There is normal right ventricular wall thickness. The right ventricular systolic function is normal. ATRIA The left atrium size is normal. The right atrium size is normal. AORTIC VALVE The aortic valve is normal in structure. MITRAL VALVE The mitral valve is normal in structure. TRICUSPID VALVE There is no pulmonary hypertension. GREAT VESSELS The aortic root is normal in size. The IVC is normal in size and collapses >50% with inspiration. PERICARDIAL EFFUSION There is no pericardial effusion. <Conclusion> The left ventricle is normal size. There is normal left ventricular wall thickness. The left ventricular function is normal. The left ventricular ejection fraction is within the normal range. There is normal LV segmental wall motion. The left ventricular diastolic function is normal.
--- NOTE | 2016-07-30 22:41 | CARD ---
APPROVED REPORT EKG Measurement Heart [id number] IN [id number] <Conclusion> Normal sinus rhythm with sinus arrhythmia Normal ECG
[2016-07-31] MEDS: Sodium Chloride 0.9% 1,000 ML IV SCH ×2 (00:31→03:23)
[2016-07-31 06:53] LABS: ADD MANUAL DIFF? NO
[2016-07-31 07:15] LABS: ALB/GLOB RATIO 1.1 (1.1-1.8); ALKALINE PHOSPHATASE 53 U/L (38-133); ALT/SGPT 33 U/L (7-56); AST/SGOT 14 U/L (15-39); BILIRUBIN,TOTAL 0.3 mg/dL (0.2-1.3); BLOOD UREA NITROGEN 9 mg/dL (7-21); CALCIUM 7.7 mg/dL (8.4-10.5); CARBON DIOXIDE 21 mmol/L (21-33); CHLORIDE 111 mmol/L (98-107); GFR AFRICAN-AMERICAN > 60; GLUCOSE,RANDOM 77 mg/dL (70-110); POTASSIUM 3.9 mmol/L (3.6-5.0); SODIUM 138 mmol/L (132-148); TOTAL PROTEIN 5.4 g/dL (5.8-8.3)
[2016-07-31] MEDS: Albuterol 0.083% Inhal Sol (2.5 mg/3 mL) UD IH SCH ×2 (07:33→19:17)
[2016-07-31 08:47] LABS: BASO # 0.02 K/mm3 (0.0-2.0); BASO % 0.5 % (0.0-3.0); EOS # 0.1 (0.0-0.7); EOS % 2.9 % (1.5-5.0); GRAN # 1.12 (1.4-6.5); HEMATOCRIT 32.8 % (36.0-48.0); LYMPH # 2.1 (1.2-3.4); LYMPH % 55.6 % (22.0-35.0); MEAN CELL VOLUME 81.2 fL (80.0-105.0); MEAN PLATELET VOLUME 10.9 fl (7.0-11.0); MONO # 0.4 (0.1-0.6); PLATELET COUNT 209 10^3/uL (120.0-450.0); RED CELL DISTRIBUTION WIDTH 13.9 % (11.5-14.5); WHITE BLOOD COUNT 3.7 10^3/ul (4.5-11.0)
[2016-07-31] MEDS: Pantoprazole 40 mg EC Tab PO SCH ×2 (09:24→11:40)
--- NOTE | 2016-07-31 10:32 | PN ---
DATE: 07/31/2016 CARDIOLOGY FOLLOWUP The patient was able to eat this morning. PHYSICAL EXAMINATION: VITAL SIGNS: Blood pressure is 110/50. The heart rate is in the 60s. NECK: Negative JVD. LUNGS: Without rales. HEART: Reveals S1, S2. EXTREMITIES: Without edema. LABORATORY DATA: Hemoglobin is 10.5. Potassium is 3.6. Echocardiogram was unremarkable. Carotid ultrasound showed no significant disease. IMPRESSION: 1. Recurrent nausea and vomiting. 2. Near syncope is secondary to her nausea and vomiting. 3. No cardiac arrhythmias noted. PLAN: Given these findings, we will discontinue telemetry today. I have suggested that the patient have a GI workup. Afshin Shine MD cc: [id number] TT: 07/31/2016 09:12:54 Confirmation # [id number] Dictation # [id number] john
[2016-07-31] MEDS ORDERED: Barium Sulfate Susp 2.1% w/v, 2.0% w/w 450 mL Bottle PO ONE (11:38)
--- NOTE | 2016-07-31 12:46 | CP.PCM.CON ---
<James Muñoz - Last Filed: 07/31/16 12:41> History of Present Illness - History of Present Illness History of Present Illness: PGY4 GI Fellow Consult Note Patient is a 25yo female with PMHx significant for asthma who presented to the ED following a syncopal episode. She has been admitted multiple times previously for syncope and collapse as well as chest pain. Stated that on her way to the bathroom she had loss of consciousness. She has had extensive cardiac and neurologic work up with no clear etiology identified at this juncture. Our service has been consulted for nausea/vomiting. In the past two days she has had intermittent bouts of intense nausea followed by vomiting/ regurgitation. Denies any relationship with meals/eating and has no abdominal pain. Has not had symptoms like this in the past outside of when she has suffered with viral illnesses. She is currently tolerating diet without issue. Admits to constipation, worsening in the last month along with 5 episodes of hematochezia in this time frame. She has never had any prior abdominal imaging or endoscopic evaluations. She denies any fever, chills, weight loss, melena, diarrhea. PMHx: Asthma PSHx: D&C FHx: Discussed with patient and denies any significant family history Social: Former 1/2ppd smoker; social EtOH use, no illicit drug use Endo: Denies any prior endoscopic evaluations Review of Systems - Constitutional Constitutional: absent: Anorexia, Chills, Fatigue, Fever, Weight Loss - EENT Eyes: absent: Change in Vision Nose/Mouth/Throat: absent: Sore Throat - Cardiovascular Cardiovascular: Lightheadedness, Palpitations, Rapid Heart Rate. absent: Chest Pain, Dyspnea, Edema - Respiratory Respiratory: absent: Cough, Dyspnea, Excessive Mucous Production - Gastrointestinal Gastrointestinal: Change in Bowel Habits, Constipation, Hematochezia. absent: Abdominal Pain, Bloating, Cramping, Diarrhea, Dyspepsia, Dysphagia, Heartburn, Hematemesis, Loose Stools, Melena, Nausea, Vomiting - Genitourinary Genitourinary: absent: Dysuria, Urinary Frequency, Urinary Urgency - Musculoskeletal Musculoskeletal: absent: Back Pain, Neck Pain - Integumentary Integumentary: absent: New Lesions, Rash - Neurological Neurological: Dizziness. absent: Numbness, Focal Weakness - Psychiatric Psychiatric: absent: Anxiety, Depression - Endocrine Endocrine: absent: Polydipsia, Polyphagia, Polyuria - Hematologic/Lymphatic Hematologic: absent: Easy Bleeding, Easy Bruising, Lymphadenopathy Past Patient History - Infectious Disease Hx of Infectious Diseases: None - Past Social History Smoking Status: Former Smoker Alcohol: None Drugs: Denies - CARDIAC Hx Cardiac Disorders: No - PULMONARY Hx Asthma: Yes Hx Bronchitis: Yes - NEUROLOGICAL Hx Neurological Disorder: Yes (Multiple syncopal episodes) - HEENT Hx HEENT Problems: No - RENAL Hx Chronic Kidney Disease: No - ENDOCRINE/METABOLIC Hx Endocrine Disorders: No - HEMATOLOGICAL/ONCOLOGICAL Hx Anemia: Yes - INTEGUMENTARY Hx Dermatological Problems: No - MUSCULOSKELETAL/RHEUMATOLOGICAL Hx Falls: Yes - GASTROINTESTINAL Hx Gastrointestinal Disorders: No - GENITOURINARY/GYNECOLOGICAL Hx Genitourinary Disorders: Yes Other/Comment: hx left ovarian Cyst - PSYCHIATRIC Hx Psychophysiologic Disorder: Yes (Former smoker) Hx Anxiety: Yes - SURGICAL HISTORY Hx Surgeries: Yes (D&C 2015) - ANESTHESIA Hx Anesthesia: Yes Meds Allergies/Adverse Reactions: Allergies Allergy/AdvReac Type Severity Reaction Status Date / Time metoclopramide [From Reglan] AdvReac SHORTNESS Verified 07/30/16 02:38 OF BREATH - Medications Medications: Current Medications Albuterol Sulfate (Albuterol 0.083% Inhal Shalini (2.5 Mg/3 Ml) Ud) 2.5 mg IH [id number] [facility] Last Admin: 07/31/16 07:33 Dose: Not Given Sodium Chloride (Sodium Chloride 0.9%) 1,000 mls @ 150 mls/hr IV .Q6H40M [facility] Last Admin: 07/31/16 03:23 Dose: 150 mls/hr Ondansetron HCl (Zofran Inj) 4 mg IVP Q6 PRN PRN Reason: Nausea/Vomiting Last Admin: 07/30/16 21:25 Dose: 4 mg Pantoprazole Sodium (Protonix Ec Tab) 40 mg PO DAILY [facility] Last Admin: 07/31/16 11:40 Dose: Not Given Physical Exam - Constitutional Appears: Non-toxic, No Acute Distress - Eye Exam Eye Exam: EOMI, PERRL - ENT Exam ENT Exam: Mucous Membranes Moist - Respiratory Exam Respiratory Exam: Clear to Auscultation Bilateral. absent: Rales, Rhonchi, Wheezes - Cardiovascular Exam Cardiovascular Exam: RRR, +S1, +S2 - GI/Abdominal Exam GI & Abdominal Exam: Normal Bowel Sounds, Soft. absent: Distended, Firm, Guarding, Organomegaly, Rigid, Tenderness - Extremities Exam Extremities exam: Positive for: normal inspection. Negative for: pedal edema - Neurological Exam Neurological exam: Alert, Oriented x3 - Psychiatric Exam Psychiatric exam: Normal Affect, Normal Mood - Skin Skin Exam: Dry, Warm Results - Vital Signs Recent Vital Signs: Last Vital Signs Temp 98.3 F 07/31/16 06:00 Pulse 60 07/31/16 06:00 Resp 20 07/31/16 06:00 BP 111/50 L 07/31/16 06:00 Pulse Ox 99 07/31/16 06:00 - Labs Result Diagrams: 07/31/16 06:30 07/31/16 06:30 Labs: Laboratory Results - last 24 hr 07/31/16 07/31/16 06:30 06:30 WBC 3.7 L RBC 4.04 Hgb 10.5 L Hct 32.8 L MCV 81.2 MCH 26.0 MCHC 32.0 RDW 13.9 Plt Count 209 MPV 10.9 Gran % 30.0 L Lymph % (Auto) 55.6 H [place] % (Auto) 11.0 H Eos % (Auto) 2.9 Baso % (Auto) 0.5 Gran # 1.12 L Lymph # 2.1 [place] # 0.4 Eos # 0.1 Baso # 0.02 Sodium 138 Potassium 3.9 Chloride 111 H Carbon Dioxide 21 Anion Gap 10 BUN 9 Creatinine 0.7 Est GFR ( Amer) > 60 Est GFR (Non-Af Amer) > 60 Random Glucose 77 Calcium 7.7 L Total Bilirubin 0.3 AST 14 L ALT 33 Alkaline Phosphatase 53 Total Protein 5.4 L Albumin 2.8 L Globulin 2.6 Albumin/Globulin Ratio 1.1 Assessment & Plan - Assessment and Plan (Free Text) Assessment: Patient is a 25yo female with PMHx significant for asthma who presented to the ED following a syncopal episode. -Syncope -Chest pain -Nausea and vomiting -Constipation Plan: -Cardiology and neurology work up noted -Tolerating diet without issue, nausea/vomiting hours after -Protonix 40mg PO QAMAC -Check CT A/P with IV/PO contrast -Further recommendations per results of above - Date & Time Date: 07/31/16 Time: 11:00 <Ronnie Villarreal - Last Filed: 07/31/16 13:03> Meds - Medications Medications: Current Medications Albuterol Sulfate (Albuterol 0.083% Inhal Shalini (2.5 Mg/3 Ml) Ud) 2.5 mg IH [id number] [facility] Last Admin: 07/31/16 07:33 Dose: Not Given Sodium Chloride (Sodium Chloride 0.9%) 1,000 mls @ 150 mls/hr IV .Q6H40M [facility] Last Admin: 07/31/16 03:23 Dose: 150 mls/hr Ondansetron HCl (Zofran Inj) 4 mg IVP Q6 PRN PRN Reason: Nausea/Vomiting Last Admin: 07/30/16 21:25 Dose: 4 mg Pantoprazole Sodium (Protonix Ec Tab) 40 mg PO DAILY [facility] Last Admin: 07/31/16 11:40 Dose: Not Given Results - Vital Signs Recent Vital Signs: Last Vital Signs Temp 98.3 F 07/31/16 06:00 Pulse 60 07/31/16 06:00 Resp 20 07/31/16 06:00 BP 111/50 L 07/31/16 06:00 Pulse Ox 99 07/31/16 06:00 - Labs Result Diagrams: 07/31/16 06:30 07/31/16 06:30 Labs: Laboratory Results - last 24 hr 07/31/16 07/31/16 06:30 06:30 WBC 3.7 L RBC 4.04 Hgb 10.5 L Hct 32.8 L MCV 81.2 MCH 26.0 MCHC 32.0 RDW 13.9 Plt Count 209 MPV 10.9 Gran % 30.0 L Lymph % (Auto) 55.6 H [place] % (Auto) 11.0 H Eos % (Auto) 2.9 Baso % (Auto) 0.5 Gran # 1.12 L Lymph # 2.1 [place] # 0.4 Eos # 0.1 Baso # 0.02 Sodium 138 Potassium 3.9 Chloride 111 H Carbon Dioxide 21 Anion Gap 10 BUN 9 Creatinine 0.7 Est GFR ( Amer) > 60 Est GFR (Non-Af Amer) > 60 Random Glucose 77 Calcium 7.7 L Total Bilirubin 0.3 AST 14 L ALT 33 Alkaline Phosphatase 53 Total Protein 5.4 L Albumin 2.8 L Globulin 2.6 Albumin/Globulin Ratio 1.1 Attending/Attestation - Attestation I have personally seen and examined this patient.: Yes I have fully participated in the care of the patient.: Yes I have reviewed all pertinent clinical information: Yes Notes (Text): Patient seen and examined with GI fellow. Agree with his note as documented above with the following additions/exceptions. This is a 25 year old female with h/o asthma who presents with dizziness/syncopal episode. She has had multiple presentations to hospital for the same, prior w/u thusfar relatively unremarkable. She does also admit to intermittent abdominal discomfort and for the past several days has been having severe nausea associated with episodes of non bloody/non bilious emesis. The emesis tends to occur 3-4 hours after eating , independently. No known history of thyroid disorder/diabetes. She has never had prior GI workup. She reports last episode of emesis this morning. Will obtain cross sectional imaging of abdomen/pelvis. Continue supportive care with antiemetic therapy, PPI. If no acute findings on CT, further GI workup can likely be pursued as outpatient. 07/31/16 13:00
[2016-07-31] MEDS ORDERED: Iohexol 350 MG/100 ML VIAL ONE (14:33)
--- NOTE | 2016-07-31 16:12 | CT ---
PROCEDURE: CT Abdomen and Pelvis with contrast HISTORY: Nausea and vomiting COMPARISON: None. TECHNIQUE: CT scan of the abdomen and pelvis was performed without administration of intravenous contrast. Oral contrast was not administered. Coronal and sagittal reformatted images were obtained. Radiation dose: Total exam DLP = 277.67 mGy-cm. This CT exam was performed using one or more of the following dose reduction techniques: Automated exposure control, adjustment of the mA and/or kV according to patient size, and/or use of iterative reconstruction technique. FINDINGS: LOWER THORAX: The lung bases are clear. LIVER: The liver is normal in size. No intrahepatic biliary ductal dilatation. GALLBLADDER AND BILE DUCTS: The gallbladder is contracted. PANCREAS: The pancreas is normal in size. No gross lesion or ductal dilatation. SPLEEN: The spleen is normal in size. ADRENALS: Both adrenal glands are normal in size without discrete nodule. KIDNEYS AND URETERS: Both kidneys are normal in size without hydronephrosis or nephrolithiasis. . VASCULATURE: No aortic aneurysm. BOWEL: The small bowel loops are normal in caliber. There is moderate amount of stool scattered throughout the colon. APPENDIX: Normal appendix. PERITONEUM: No free fluid. No free air. LYMPH NODES: There are prominent subcentimeter the centric lymph nodes, more so the right lower quadrant. BLADDER: Normal in appearance. REPRODUCTIVE: The uterus is normal in size. BONES: No acute fracture. Normal in appearance. OTHER FINDINGS: None. IMPRESSION: 1. No evidence of nephrolithiasis, hydronephrosis or obstructive uropathy. 2. No CT evidence for acute appendicitis. Prominent subcentimeter mesenteric lymph nodes, more in the right lower quadrant may represent nonspecific mesenteric lymphadenitis. 3. Constipation. No evidence of bowel obstruction.
--- NOTE | 2016-07-31 16:41 | CP.PCM.PN ---
<Jerry Pompa - Last Filed: 07/31/16 16:37> Subjective - Date & Time of Evaluation Date of Evaluation: 07/31/16 Time of Evaluation: 11:00 - Subjective Subjective: Medicine progress note. Dr. Rod Pt seen and examined at bedside. No acute events overnight. Patient reports small episodes of emesis x4 today. No current N/V/D. No Abd pain. No CP/SOB. no new complaints. Objective - Vital Signs/Intake and Output Vital Signs (last 24 hours): Temp Pulse Resp BP Pulse Ox 98.7 F 81 20 118/60 99 07/31/16 12:00 07/31/16 12:00 07/31/16 12:00 07/31/16 12:00 07/31/16 06:00 Intake and Output: 07/31/16 07/31/16 06:59 18:59 Intake Total 2250 Output Total 360 Balance 1890 - Medications Medications: Current Medications Albuterol Sulfate (Albuterol 0.083% Inhal Shalini (2.5 Mg/3 Ml) Ud) 2.5 mg IH [id number] [facility] Last Admin: 07/31/16 07:33 Dose: Not Given Ondansetron HCl (Zofran Inj) 4 mg IVP Q6 PRN PRN Reason: Nausea/Vomiting Last Admin: 07/30/16 21:25 Dose: 4 mg Pantoprazole Sodium (Protonix Ec Tab) 40 mg PO DAILY [facility] Last Admin: 07/31/16 11:40 Dose: Not Given - Labs Labs: 07/31/16 06:30 07/31/16 06:30 - Constitutional Appears: Well, No Acute Distress - Head Exam Head Exam: ATRAUMATIC, NORMAL INSPECTION, NORMOCEPHALIC - Eye Exam Eye Exam: EOMI, Normal appearance, PERRL. absent: Scleral icterus - ENT Exam ENT Exam: Mucous Membranes Moist - Neck Exam Neck Exam: Full ROM - Respiratory Exam Respiratory Exam: Clear to Ausculation Bilateral, NORMAL BREATHING PATTERN. absent: Decreased Breath Sounds, Rales, Rhonchi, Wheezes - Cardiovascular Exam Cardiovascular Exam: RRR, +S1, +S2. absent: JVD - GI/Abdominal Exam GI & Abdominal Exam: Soft. absent: Tenderness, Mass, Rebound - Extremities Exam Extremities Exam: Full ROM, Normal Inspection - Back Exam Back Exam: NORMAL INSPECTION - Neurological Exam Neurological Exam: Alert, Awake, Normal Gait, Oriented x3 - Psychiatric Exam Psychiatric exam: Normal Affect, Normal Mood - Skin Skin Exam: Dry, Intact, Normal Color, Warm Assessment and Plan - Assessment and Plan (Free Text) Assessment: 25 yo female with PMH of asthma presented to ED after syncopal episode and intractable nausea and vomiting. Plan: 1. Syncope ok to D/C tele - IVF NS @150 - cardotid US - no stenosis - echo - preserved EF - neurology consulted, Dr. Lagunas, apprecite recs consider out-patient Tilt test - cardiology consulted, Dr. Shine, apprecaite recs no further Cardiac work-up warranted 2. Nausea/vomiting - IVF NS@150 - zofran prn - GI consult requested, Dr. Villarreal, appreciate recs CT Abd/Pelvis w/ PO and IV contrast - constipation; non-specific messenteric lymphadenitis. possible bezoar for EGD tomorrow NPO after midnight 3. asthma - cont home med albuterol 4. Ppx GI- protonix DVT- SCDs Discussed case with Dr. Viola Pompa PGY1 <Viola CEBALLOS,Nelsoncatronneftali - Last Filed: 07/31/16 17:26> Objective - Vital Signs/Intake and Output Vital Signs (last 24 hours): Temp Pulse Resp BP Pulse Ox 98.7 F 81 20 118/60 99 07/31/16 12:00 07/31/16 12:00 07/31/16 12:00 07/31/16 12:00 07/31/16 06:00 Intake and Output: 07/31/16 07/31/16 06:59 18:59 Intake Total 2250 Output Total 360 Balance 1890 - Medications Medications: Current Medications Albuterol Sulfate (Albuterol 0.083% Inhal Shalini (2.5 Mg/3 Ml) Ud) 2.5 mg IH [id number] [facility] Last Admin: 07/31/16 07:33 Dose: Not Given Ondansetron HCl (Zofran Inj) 4 mg IVP Q6 PRN PRN Reason: Nausea/Vomiting Last Admin: 07/30/16 21:25 Dose: 4 mg Pantoprazole Sodium (Protonix Ec Tab) 40 mg PO DAILY [facility] Last Admin: 07/31/16 11:40 Dose: Not Given - Labs Labs: 07/31/16 06:30 07/31/16 06:30 Attending/Attestation - Attestation I have personally seen and examined this patient.: Yes I have fully participated in the care of the patient.: Yes I have reviewed all pertinent clinical information, including history, physical exam and plan: Yes Notes (Text): 07/31/16 17:26 Patient was seen and examined with coroner/medical examiner .Agreed with resident assessment and plan. Management plan was discussed in detail with patient Education was provided.
--- NOTE | 2016-07-31 19:01 | CON ---
DATE: 07/31/2016 HISTORY OF PRESENT ILLNESS: This is a 25-year-old female with past medical history not significant e xcept of asthma and had a syncopal episode in the past. The patient was ____ and lost consciousness. The patient also had a mild chest pain prior to the episode. Now lying comfortably in the bed, not in distress. The patient had a similar episode on which was vaso vagal. PAST MEDICAL HISTORY: Asthma. PAST SURGICAL HISTORY: D and C. SOCIAL HISTORY: Lives with 1 child. ALLERGIES: METOCLOPRAMIDE. PHYSICAL EXAMINATION: HEENT: Normocephalic, atraumatic. NECK: Supple. NEUROLOGIC: Awake, oriented x 3. No aphasia. Cranial nerves II through XII were tested. Pupils re active. EOM intact. Visual [place] full. No facial asymmetry. Tongue midline. Motor examination: Moves all the extremities equally. Tone normal. Deep tendon reflexes 1+. Both plantars are downgo ing. Sensory appears intact. Cerebellar gait deferred. IMPRESSION: Syncope and workup is in progress. We will follow up. Rome Lagunas MD cc: [id number] TT: 07/31/2016 19:00:37 Confirmation # [id number] Dictation # [id number] john
[2016-08-01 01:15] LABS: INR 1.01 (0.93-1.08); PARTIAL THROMBOPLASTIN TIME 25.2 Seconds (23.7-30.8)
[2016-08-01 06:53] LABS: ADD MANUAL DIFF? NO
[2016-08-01 07:26] LABS: BASO # 0.01 K/mm3 (0.0-2.0); BASO % 0.3 % (0.0-3.0); EOS # 0.1 (0.0-0.7); EOS % 2.2 % (1.5-5.0); GRAN # 1.08 (1.4-6.5); GRAN % 30.3 % (50.0-68.0); HEMATOCRIT 35.5 % (36.0-48.0); LYMPH # 2.1 (1.2-3.4); LYMPH % 57.9 % (22.0-35.0); MEAN CELL VOLUME 79.1 fL (80.0-105.0); MEAN CORPUSCULAR HEMOGLOBIN 25.8 pg (25.0-35.0); MEAN CORPUSCULAR HGB CONC 32.7 g/dl (31.0-37.0); MONO # 0.3 (0.1-0.6); MONO % 9.3 % (1.0-6.0); PLATELET COUNT 245 10^3/uL (120.0-450.0); RED CELL DISTRIBUTION WIDTH 13.8 % (11.5-14.5); WHITE BLOOD COUNT 3.6 10^3/ul (4.5-11.0)
[2016-08-01] MEDS: Albuterol 0.083% Inhal Sol (2.5 mg/3 mL) UD IH SCH ×2 (07:29→13:07)
[2016-08-01 07:37] LABS: ALB/GLOB RATIO 1.2 (1.1-1.8); ALKALINE PHOSPHATASE 56 U/L (38-133); ALT/SGPT 28 U/L (7-56); AST/SGOT 19 U/L (15-39); BILIRUBIN,TOTAL 0.4 mg/dL (0.2-1.3); BLOOD UREA NITROGEN 8 mg/dL (7-21); CALCIUM 8.7 mg/dL (8.4-10.5); CARBON DIOXIDE 26 mmol/L (21-33); CHLORIDE 107 mmol/L (98-107); GFR AFRICAN-AMERICAN > 60; GLUCOSE,RANDOM 77 mg/dL (70-110); POTASSIUM 3.8 mmol/L (3.6-5.0); SODIUM 138 mmol/L (132-148); TOTAL PROTEIN 6.6 g/dL (5.8-8.3)
[2016-08-01] MEDS: Pantoprazole 40 mg EC Tab PO SCH (09:11)
[2016-08-01] MEDS ORDERED: Propofol 10 mg/ml Inj (20 ML) ONE (10:16)
[2016-08-01] MEDS ORDERED: Lidocaine 1% Inj (20ml) ONE (10:17)
[2016-08-01] MEDS ORDERED: Lactated Ringer's 1,000 ML IV SCH (10:52)
--- NOTE | 2016-08-01 10:52 | CP.PCM.PN ---
Subjective - Date & Time of Evaluation Date of Evaluation: 08/01/16 Time of Evaluation: 10:49 - Subjective Subjective: Patient seen and examined. s/p EGD this morning showing mild gastritis, otherwise normal examination. Objective - Vital Signs/Intake and Output Vital Signs (last 24 hours): Temp Pulse Resp BP Pulse Ox 97.9 F 53 L 16 98/42 L 98 08/01/16 07:30 08/01/16 07:30 08/01/16 07:30 08/01/16 07:30 08/01/16 07:30 - Medications Medications: Current Medications Albuterol Sulfate (Albuterol 0.083% Inhal Shalini (2.5 Mg/3 Ml) Ud) 2.5 mg IH [id number] [facility] Last Admin: 08/01/16 07:29 Dose: Not Given Ondansetron HCl (Zofran Inj) 4 mg IVP Q6 PRN PRN Reason: Nausea/Vomiting Last Admin: 07/30/16 21:25 Dose: 4 mg Pantoprazole Sodium (Protonix Ec Tab) 40 mg PO DAILY [facility] Last Admin: 08/01/16 09:11 Dose: Not Given - Labs Labs: 08/01/16 06:30 08/01/16 06:30 PT 10.9 Seconds (9.9-11.8) 08/01/16 00:44 INR 1.01 (0.93-1.08) 08/01/16 00:44 APTT 25.2 Seconds (23.7-30.8) 08/01/16 00:44 Assessment and Plan - Assessment and Plan (Free Text) Assessment: Nausea, vomiting Abdominal pain s/p EGD showing mild gastritis, no evidence of obstruction or other GI pathology CT imaging reviewed by me, showing fecal retention, subcentimeter mesenteric adenopathy (non-specific) Plan: - Advance diet as tolerated - Anti-emetic therapy PRN - Continue with PPI therapy - Follow up EGD biopsy results - Follow up neurology/cardiology recommendations for syncope workup - No ongoing GI issues, will sign off case. Please reconsult as necessary, thank you.
[2016-08-01 11:02] VITALS: TEMP 98
[2016-08-01 11:08] VITALS: O2SAT 100
[2016-08-01 11:37] VITALS: BP 109/62; PULSE 57; RESP 20
--- NOTE | 2016-08-01 13:05 | CP.PCM.DIS ---
<Jerry Pompa - Last Filed: 08/10/16 21:01> Provider - Provider Date of Admission: 07/30/16 02:11 Attending physician: Gilbert Rod MD Consults: Cardiology: Dr. Shine Neurology: Dr. Lagunas GI: Dr. Villarreal Time Spent in preparation of Discharge (in minutes): 45 Hospital Course - Lab Results Lab Results: Most Recent Lab Values WBC 3.6 10^3/ul (4.5-11.0) L 08/01/16 06:30 RBC 4.49 10^6/uL (3.5-6.1) 08/01/16 06:30 Hgb 11.6 gm/dL (12.0-16.0) L 08/01/16 06:30 Hct 35.5 % (36.0-48.0) L 08/01/16 06:30 MCV 79.1 fL (80.0-105.0) L 08/01/16 06:30 MCH 25.8 pg (25.0-35.0) 08/01/16 06:30 MCHC 32.7 g/dl (31.0-37.0) 08/01/16 06:30 RDW 13.8 % (11.5-14.5) 08/01/16 06:30 Plt Count 245 10^3/uL (120.0-450.0) 08/01/16 06:30 MPV 10.0 fl (7.0-11.0) 08/01/16 06:30 Gran % 30.3 % (50.0-68.0) L 08/01/16 06:30 Lymph % (Auto) 57.9 % (22.0-35.0) H 08/01/16 06:30 Dillon % (Auto) 9.3 % (1.0-6.0) H 08/01/16 06:30 Eos % (Auto) 2.2 % (1.5-5.0) 08/01/16 06:30 Baso % (Auto) 0.3 % (0.0-3.0) 08/01/16 06:30 Gran # 1.08 (1.4-6.5) L 08/01/16 06:30 Lymph # 2.1 (1.2-3.4) 08/01/16 06:30 Dillon # 0.3 (0.1-0.6) 08/01/16 06:30 Eos # 0.1 (0.0-0.7) 08/01/16 06:30 Baso # 0.01 K/mm3 (0.0-2.0) 08/01/16 06:30 PT 10.9 Seconds (9.9-11.8) 08/01/16 00:44 INR 1.01 (0.93-1.08) 08/01/16 00:44 APTT 25.2 Seconds (23.7-30.8) 08/01/16 00:44 Sodium 138 mmol/L (132-148) 08/01/16 06:30 Potassium 3.8 mmol/L (3.6-5.0) 08/01/16 06:30 Chloride 107 mmol/L (98-107) 08/01/16 06:30 Carbon Dioxide 26 mmol/L (21-33) 08/01/16 06:30 Anion Gap 9 (10-20) L 08/01/16 06:30 BUN 8 mg/dL (7-21) 08/01/16 06:30 Creatinine 0.8 mg/dL (0.5-1.4) 08/01/16 06:30 Est GFR ( Amer) > 60 08/01/16 06:30 Est GFR (Non-Af Amer) > 60 08/01/16 06:30 Random Glucose 77 mg/dL (70-110) 08/01/16 06:30 Calcium 8.7 mg/dL (8.4-10.5) 08/01/16 06:30 Total Bilirubin 0.4 mg/dL (0.2-1.3) 08/01/16 06:30 AST 19 U/L (15-39) 08/01/16 06:30 ALT 28 U/L (7-56) 08/01/16 06:30 Alkaline Phosphatase 56 U/L (38-133) 08/01/16 06:30 Lactate Dehydrogenase 439 U/L (333-699) 07/29/16 22:35 Total Creatine Kinase 46 U/L (35-230) 07/29/16 22:35 Troponin I < 0.01 ng/mL 07/29/16 22:35 Total Protein 6.6 g/dL (5.8-8.3) 08/01/16 06:30 Albumin 3.6 g/dL (3.0-4.8) 08/01/16 06:30 Globulin 3.0 gm/dL 08/01/16 06:30 Albumin/Globulin Ratio 1.2 (1.1-1.8) 08/01/16 06:30 Lipase 292 U/L (23-300) 07/29/16 22:35 Urine Color Yellow (YELLOW) 07/30/16 00:11 Urine Appearance Sl cloudy (CLEAR) 07/30/16 00:11 Urine pH 7.0 (4.7-8.0) 07/30/16 00:11 Ur Specific [place] 1.025 (1.005-1.035) 07/30/16 00:11 Urine Protein Trace mg/dL (<30 mg/dL) H 07/30/16 00:11 Urine Glucose (UA) Negative mg/dL (NEGATIVE) 07/30/16 00:11 Urine Ketones Negative mg/dL (NEGATIVE) 07/30/16 00:11 Urine Blood Negative (NEGATIVE) 07/30/16 00:11 Urine Nitrate Negative (NEGATIVE) 07/30/16 00:11 Urine Bilirubin Negative (NEGATIVE) 07/30/16 00:11 Urine Urobilinogen 1.0 E.U./dL (<1 E.U./dL) H 07/30/16 00:11 Ur Leukocyte Esterase Negative Clint/uL (NEGATIVE) 07/30/16 00:11 Urine RBC 0 - 2 /hpf (0-2) 07/30/16 00:11 Urine WBC 1 - 3 /hpf (0-6) 07/30/16 00:11 Ur Epithelial Cells 4 - 5 /hpf (0-5) 07/30/16 00:11 Urine Bacteria Small (NEG) 07/30/16 00:11 Urine HCG, Qual Negative (NEGATIVE) 07/30/16 00:11 - Hospital Course Hospital Course: Upon Admission: 25yo F with PMHx of Asthma here for evaluation of syncopal episode. Patient states that she was on her way to the bathroom when she had LOC. This episode was not witnessed. Patient has had similar episode in the past was was discharged after basic workup. Patient received a through Cardiology and Neurology workup during this admission. ECHO unremarkable. Carotid doppler wnl. Orthostatic vitals negative. CT head negative. O2 Saturation 100% on RA. Patient started to c/o vomiting and a GI consult was also obtained. CT abdomen performed with likely bezoar vs. food observed in the stomach. Patient was taken for EGD which showed small 1cm Hiatal hernia, gastritis with biopsy taken. Patient was started on Protonix. Findings were discussed with the patient and family. She was urged to obtain a Primary Care Physician and she agreed. She was cleared for discharge with close out-patient follow up. 1. Syncope; Hydrated, continue hydration 2. Vomiting; Gastritis; Started PPI, Zofran prn; F/u with GI as out-patient 3. Hx of Asthma; continue home meds Upon Discharge: Patient is cleared for discharge as per Dr. Rod 1. Follow up with your Primary care physician within 1 week. You [place] [facility] [place] if [place]. (Call for appointment) 2. Follow up with GI Physician for EGD Biopsy results. Call for appointment 3. Stay well hydrated 4. Take new meds as directed. (Prescriptions sent to [facility]) 5. Return to the ER with any concerning symptoms. New Prescriptions: Zofran ODT q6h prn #10/0 Protonix 40mg PO Daily #30/0 Discharge Exam - Head Exam Head Exam: ATRAUMATIC, NORMAL INSPECTION, NORMOCEPHALIC - Eye Exam Eye Exam: EOMI, Normal appearance, PERRL. absent: Scleral icterus - ENT Exam ENT Exam: Mucous Membranes Moist - Neck Exam Neck exam: Full Rom - Respiratory Exam Respiratory Exam: Clear to PA & Lateral, NORMAL BREATHING PATTERN, UNREMARKABLE. absent: Accessory Muscle Use, Chest Wall Tenderness, Rales, Rhonchi, Wheezes - Cardiovascular Exam Cardiovascular Exam: RRR, +S1, +S2. absent: JVD - GI/Abdominal Exam GI & Abdominal Exam: Normal Bowel Sounds, Soft, Unremarkable. absent: Distended , Guarding, Hernia, Rebound, Rigid, Tenderness - Extremities Exam Extremities exam: normal inspection - Back Exam Back exam: NORMAL INSPECTION - Neurological Exam Neurological exam: Alert, Oriented x3 - Psychiatric Exam Psychiatric exam: Normal Affect, Normal Mood - Skin Skin Exam: Dry, Intact, Normal Color, Warm Discharge Plan - Follow Up Plan Condition: STABLE Disposition: HOME/ ROUTINE Instructions: Ondansetron (By mouth), Pantoprazole (By mouth), Syncope (DC), Regular Diet (DC), Upper Endoscopy (GEN) Additional Instructions: Patient is cleared for discharge as per Dr. Rod 1. Follow up with your Primary care physician within 1 week. You may follow up with [facility] [place] if needed. (Call for appointment) 2. Follow up with GI Physician for EGD Biopsy results. Call for appointment 3. Stay well hydrated 4. Take new meds as directed. (Prescriptions sent to [facility]) 5. Return to the ER with any concerning symptoms. New Prescriptions: Zofran ODT q6h prn #10/0 Protonix 40mg PO Daily #30/0 Referrals: [facility] [place] Jd Peter MD [Staff Provider] - <Viola CEBALLOS,Gilbert - Last Filed: 08/12/16 07:49> Provider - Provider Date of Admission: 07/30/16 02:11 Attending physician: Gilbert Rod MD Hospital Course - Lab Results Lab Results: Most Recent Lab Values WBC 3.6 10^3/ul (4.5-11.0) L 08/01/16 06:30 RBC 4.49 10^6/uL (3.5-6.1) 08/01/16 06:30 Hgb 11.6 gm/dL (12.0-16.0) L 08/01/16 06:30 Hct 35.5 % (36.0-48.0) L 08/01/16 06:30 MCV 79.1 fL (80.0-105.0) L 08/01/16 06:30 MCH 25.8 pg (25.0-35.0) 08/01/16 06:30 MCHC 32.7 g/dl (31.0-37.0) 08/01/16 06:30 RDW 13.8 % (11.5-14.5) 08/01/16 06:30 Plt Count 245 10^3/uL (120.0-450.0) 08/01/16 06:30 MPV 10.0 fl (7.0-11.0) 08/01/16 06:30 Gran % 30.3 % (50.0-68.0) L 08/01/16 06:30 Lymph % (Auto) 57.9 % (22.0-35.0) H 08/01/16 06:30 Dillon % (Auto) 9.3 % (1.0-6.0) H 08/01/16 06:30 Eos % (Auto) 2.2 % (1.5-5.0) 08/01/16 06:30 Baso % (Auto) 0.3 % (0.0-3.0) 08/01/16 06:30 Gran # 1.08 (1.4-6.5) L 08/01/16 06:30 Lymph # 2.1 (1.2-3.4) 08/01/16 06:30 Dillon # 0.3 (0.1-0.6) 08/01/16 06:30 Eos # 0.1 (0.0-0.7) 08/01/16 06:30 Baso # 0.01 K/mm3 (0.0-2.0) 08/01/16 06:30 PT 10.9 Seconds (9.9-11.8) 08/01/16 00:44 INR 1.01 (0.93-1.08) 08/01/16 00:44 APTT 25.2 Seconds (23.7-30.8) 08/01/16 00:44 Sodium 138 mmol/L (132-148) 08/01/16 06:30 Potassium 3.8 mmol/L (3.6-5.0) 08/01/16 06:30 Chloride 107 mmol/L (98-107) 08/01/16 06:30 Carbon Dioxide 26 mmol/L (21-33) 08/01/16 06:30 Anion Gap 9 (10-20) L 08/01/16 06:30 BUN 8 mg/dL (7-21) 08/01/16 06:30 Creatinine 0.8 mg/dL (0.5-1.4) 08/01/16 06:30 Est GFR ( Amer) > 60 08/01/16 06:30 Est GFR (Non-Af Amer) > 60 08/01/16 06:30 Random Glucose 77 mg/dL (70-110) 08/01/16 06:30 Calcium 8.7 mg/dL (8.4-10.5) 08/01/16 06:30 Total Bilirubin 0.4 mg/dL (0.2-1.3) 08/01/16 06:30 AST 19 U/L (15-39) 08/01/16 06:30 ALT 28 U/L (7-56) 08/01/16 06:30 Alkaline Phosphatase 56 U/L (38-133) 08/01/16 06:30 Lactate Dehydrogenase 439 U/L (333-699) 07/29/16 22:35 Total Creatine Kinase 46 U/L (35-230) 07/29/16 22:35 Troponin I < 0.01 ng/mL 07/29/16 22:35 Total Protein 6.6 g/dL (5.8-8.3) 08/01/16 06:30 Albumin 3.6 g/dL (3.0-4.8) 08/01/16 06:30 Globulin 3.0 gm/dL 08/01/16 06:30 Albumin/Globulin Ratio 1.2 (1.1-1.8) 08/01/16 06:30 Lipase 292 U/L (23-300) 07/29/16 22:35 Urine Color Yellow (YELLOW) 07/30/16 00:11 Urine Appearance Sl cloudy (CLEAR) 07/30/16 00:11 Urine pH 7.0 (4.7-8.0) 07/30/16 00:11 Ur Specific [place] 1.025 (1.005-1.035) 07/30/16 00:11 Urine Protein Trace mg/dL (<30 mg/dL) H 07/30/16 00:11 Urine Glucose (UA) Negative mg/dL (NEGATIVE) 07/30/16 00:11 Urine Ketones Negative mg/dL (NEGATIVE) 07/30/16 00:11 Urine Blood Negative (NEGATIVE) 07/30/16 00:11 Urine Nitrate Negative (NEGATIVE) 07/30/16 00:11 Urine Bilirubin Negative (NEGATIVE) 07/30/16 00:11 Urine Urobilinogen 1.0 E.U./dL (<1 E.U./dL) H 07/30/16 00:11 Ur Leukocyte Esterase Negative Clint/uL (NEGATIVE) 07/30/16 00:11 Urine RBC 0 - 2 /hpf (0-2) 07/30/16 00:11 Urine WBC 1 - 3 /hpf (0-6) 07/30/16 00:11 Ur Epithelial Cells 4 - 5 /hpf (0-5) 07/30/16 00:11 Urine Bacteria Small (NEG) 07/30/16 00:11 Urine HCG, Qual Negative (NEGATIVE) 07/30/16 00:11 Attending/Attestation - Attestation I have personally seen and examined this patient.: Yes I have fully participated in the care of the patient.: Yes I have reviewed all pertinent clinical information, including history, physical exam and plan: Yes Notes (Text): 08/12/16 07:45 Patient was seen and examined with medical communication specialist .Agreed with resident assessment and plan. 25yo F with PMHx of Asthma here for evaluation of syncopal episode, CT head was negative, tele was unremarkable for any arrythmia.Cardiology did not recommend any further work up.Patient was also evaluated by Neurology , no further inpatient work up was recommended.Patient was having intermittent vomiting 4 hour after eating food, was evaluated by GI, underwent endoscopy which was unremarkable except for mild gastritis.Patient is tolerating food at the time of discharge. Management plan was discussed in detail with patient Education was provided.
== END 2016-08-01 16:50 | disposition home or self-care (01) ==
LOC: ED 21:16 → ERH 07-30 02:11 → 2RNO 07-30 03:33 → 5RNO 07-31 21:13
PROVIDERS: ADMIT Internal Medicine; ATTEND Internal Medicine
DX: K29.70 Gastritis, unspecified, without bleeding (principal); R55 Syncope and collapse; K44.9 Diaphragmatic hernia without obstruction or gangrene; J45.909 Unspecified asthma, uncomplicated; Z87.891 Personal history of nicotine dependence; R42 Dizziness and giddiness; K59.00 Constipation, unspecified; R11.2 Nausea with vomiting, unspecified
CPT/HCPCS: 36415; 43239; 70450; 71010; 74176; 80053; 81001; 82550; 83615; 83690; 84484; 84703; 85025; 85027; 85610; 85730; 88305; 88342; 93005; 93306; 93880; 94640; 96374; 96375; 96376; 99285; C9113; G0378; J2405; J2704; J3010; J7040

== ENCOUNTER 2016-08-22 19:17 | Emergency (ER) | payer OTHER ==
[2016-08-22 19:18] VITALS: BMI 21.2
[2016-08-22 19:29] VITALS: TEMP 98.2
[2016-08-22] MEDS ORDERED: Albuterol-Ipratrop 3 mg / 0.5 (3 ml) UD IH STA ×2 (19:31→20:14)
--- NOTE | 2016-08-22 19:35 | ED PDOC ---
Arrival/HPI - General Historian: Patient - General Chief Complaint: Shortness Of Breath Time Seen by Provider: 08/22/16 19:21 - History of Present Illness Narrative History of Present Illness (Text): 08/22/16 19:32 25yo female with PMHx of Asthma biba for complaint of SOB. States she started having SOB and wheezing on her way from school. Notes that it was humid and humidity usually affect her Asthma. States she forgot her inhaler at home. She denies chest pain, fever, sick contact, any other complaint. She is not steroid dependent. Never intubate and admitted for hospitalization. Notes that her symptoms improved enroute to ED when EMS gave her oxygen. (Ahsan Odonnell A) Past Medical History - Provider Review Nursing Documentation Reviewed: Yes - Infectious Disease Hx of Infectious Diseases: None - Pulmonary Hx Asthma: Yes Hx Bronchitis: Yes - Neurological Hx Neurological Disorder: Yes (Multiple syncopal episodes) - HEENT Hx HEENT Disorder: No - Renal Hx Renal Disorder: No - Endocrine/Metabolic Hx Endocrine Disorders: No - Hematological/Oncological Hx Anemia: Yes - Integumentary Hx Dermatological Disorder: No - Musculoskeletal/Rheumatological Hx Falls: Yes - Gastrointestinal Hx Gastrointestinal Disorders: No - Genitourinary/Gynecological Hx Genitourinary Disorders: Yes - Psychiatric Hx Anxiety: Yes Hx Substance Use: No (denies) - Surgical History Hx Dilation and Curettage: Yes (2016) - Anesthesia Hx Anesthesia: Yes Hx Anesthesia Reactions: No Hx Malignant Hyperthermia: No Family/Social History - Physician Review Nursing Documentation Reviewed: Yes Family/Social History: Unknown Family HX Smoking Status: Former Smoker Hx Alcohol Use: No (denies) Hx Substance Use: No (denies) Allergies/Home Meds Allergies/Adverse Reactions: Allergies metoclopramide [From Reglan] Adverse Reaction (Verified 08/13/16 01:47) SHORTNESS OF BREATH Review of Systems - Physician Review All systems were reviewed & negative as marked: Yes - Review of Systems Constitutional: Normal Eyes: Normal ENT: Normal Respiratory: SOB. absent: Cough, Sputum, Wheezing Cardiovascular: Normal Gastrointestinal: Normal Genitourinary Female: Normal Musculoskeletal: Normal Skin: Normal Neurological: Normal Endocrine: Normal Hemo/Lymphatic: Normal Psychiatric: Normal Physical Exam Vital Signs Reviewed: Yes Temperature: Afebrile Blood Pressure: Normal Pulse: Regular Respiratory Rate: Normal Appearance: Positive for: Well-Appearing, Non-Toxic, Comfortable Pain Distress: None Mental Status: Positive for: Alert and Oriented X 3 - Systems Exam Head: Present: Atraumatic, Normocephalic Pupils: Present: PERRL Extroacular Muscles: Present: EOMI Conjunctiva: Present: Normal Mouth: Present: Moist Mucous Membranes Neck: Present: Normal Range of Motion Respiratory/Chest: Present: Clear to Auscultation, Good Air Exchange, Wheezes ( Very mild diffuse expiratory wheeze ). No: Respiratory Distress, Accessory Muscle Use, Decreased Breath Sounds, Rales, Retracting, Rhonchi Cardiovascular: Present: Regular Rate and Rhythm, Normal S1, S2. No: Murmurs Abdomen: Present: Normal Bowel Sounds. No: Tenderness, Distention, Peritoneal Signs Back: Present: Normal Inspection Upper Extremity: Present: Normal Inspection. No: Cyanosis, Edema Lower Extremity: Present: Normal Inspection. No: Edema Neurological: Present: GCS=15, CN II-XII Intact, Speech Normal Skin: Present: Warm, Dry, Normal Color. No: Rashes Psychiatric: Present: Alert, Oriented x 3, Normal Insight, Normal Concentration Vital Signs Temp Pulse Resp BP Pulse Ox 08/22/16 21:13 85 16 112/52 L 100 08/22/16 19:44 62 18 100 08/22/16 19:43 18 100 08/22/16 19:26 98.2 F 78 18 118/64 99 Medical Decision Making ED Course and Treatment: I was available for consultation during PA evaluation. The chart was reviewed by me, and I agree with disposition. The documented history was done by the physician psychiatric social worker. The documented physical exam was done by the physician psychiatric social worker. The documented procedures were done by the physician psychiatric social worker. ( Suresh Carrion) 08/23/16 00:58 PT in ED for stated history. On re evaluation her lung was CTA b/l. she was noted to be eating a sandwich. she was speaking in full sentence and ambulatory without distress. DC home with Albuterol rx. Referred to her PMD. (Ahsan Odonnell A) - Medication Orders Current Medication Orders: Discontinued Medications Albuterol/Ipratropium (Duoneb 3 Mg/0.5 Mg (3 Ml) Ud) 3 ml IH STAT STA Stop: 08/22/16 19:32 Last Admin: 08/22/16 19:37 Dose: 3 ml Albuterol/Ipratropium (Duoneb 3 Mg/0.5 Mg (3 Ml) Ud) 3 ml IH STAT STA Stop: 08/22/16 20:15 Last Admin: 08/22/16 20:29 Dose: 3 ml Prednisone (Prednisone Tab) 40 mg PO STAT STA Stop: 08/22/16 19:33 Last Admin: 08/22/16 19:37 Dose: 40 mg Tramadol HCl (Ultram) 50 mg PO STAT STA Stop: 08/22/16 20:54 Last Admin: 08/22/16 21:08 Dose: 50 mg Disposition/Present on Arrival - Present on Arrival Any Indicators Present on Arrival: No History of DVT/PE: No History of Uncontrolled Diabetes: No Urinary Catheter: No History of Decub. Ulcer: No History Surgical Site Infection Following: None - Disposition Have Diagnosis and Disposition been Completed?: Yes Disposition Time: 20:30 Patient Plan: Discharge - Disposition Diagnosis: Asthma attack Disposition: HOME/ ROUTINE Condition: STABLE Discharge Instructions (ExitCare): Asthma (ED) Additional Instructions: Follow up with your Doctor Return to ED for any new or worsening symptoms Prescriptions: Albuterol HFA [Ventolin HFA 90 mcg/actuation (8 g)] 2 puff IH [id number] #1 puff Referrals: [facility] [place] [Outside] - Follow up with primary
[2016-08-22 19:45] VITALS: O2SAT 100
[2016-08-22 21:13] VITALS: BP 112/52; PULSE 85; RESP 16
--- NOTE | 2016-08-23 14:03 | CARD ---
APPROVED REPORT EKG Measurement Heart [id number] <Conclusion> Normal sinus rhythm with sinus arrhythmia Normal ECG
== END 2016-08-22 21:13 | disposition home or self-care (01) ==
LOC: ED 19:17
DX: J45.909 Unspecified asthma, uncomplicated (principal)

== ENCOUNTER 2017-03-09 19:16 | Emergency (ER) | payer BC, MEDICAID, OTHER ==
[2017-03-09 20:39] VITALS: BMI 24.7
[2017-03-09 20:42] VITALS: RESP 18; TEMP 98.4
--- NOTE | 2017-03-09 22:07 | ED PDOC ---
Arrival/HPI - General Chief Complaint: Abdominal Pain Time Seen by Provider: 03/09/17 21:32 Historian: Patient - History of Present Illness Narrative History of Present Illness (Text): 03/09/17 21:50 A 26 year old female, 6 months , whose past medical history includes A2, asthma and ovarian cysts, presents to the emergency department complaining of abdominal pain and left sided- chest pain. The patient states that she has had the ovarian cysts for a long period of time and the ovarian cysts have been becoming larger. She states that her abdominal pain wakes her up from her sleep. She notes that her pain feels like a "ripping" pain. Ever since the abdominal started, she states that she has also been experiencing left sided chest pain. She notes that she had 3-4 episodes of vomiting last week. The patient also notes that she has not seen her PRODUCTION UTILITY WORKER in over a month. The patient denies fevers, chills, headache, dizziness, shortness of breath, dyspnea on exertion, cough, diarrhea, back pain, neck pain, urinary/bowel changes, or any other complaint. PRODUCTION UTILITY WORKER: Dr. Dow Time/Duration: Other (Several Days) Symptom Onset: Sudden Symptom Course: Unchanged Activities at Onset: Rest, Light Context: Home Past Medical History - Provider Review Nursing Documentation Reviewed: Yes - Infectious Disease Hx of Infectious Diseases: None - Cardiac Hx Cardiac Arrhythmia: Yes - Pulmonary Hx Asthma: Yes Hx Bronchitis: Yes - Neurological Hx Neurological Disorder: Yes (Multiple syncopal episodes) - HEENT Hx HEENT Disorder: No - Renal Hx Renal Disorder: No - Endocrine/Metabolic Hx Endocrine Disorders: No - Hematological/Oncological Hx Anemia: Yes - Integumentary Hx Dermatological Disorder: No - Musculoskeletal/Rheumatological Hx Musculoskeletal Disorders: No - Gastrointestinal Hx Gastrointestinal Disorders: No - Genitourinary/Gynecological Hx Genitourinary Disorders: Yes - Psychiatric Hx Anxiety: Yes Hx Substance Use: No (denies) - Surgical History Hx Dilation and Curettage: Yes (2016) - Anesthesia Hx Anesthesia: Yes Hx Anesthesia Reactions: No Hx Malignant Hyperthermia: No Family/Social History - Physician Review Nursing Documentation Reviewed: Yes Family/Social History: No Known Family HX Smoking Status: Former Smoker Hx Alcohol Use: No (denies) Hx Substance Use: No (denies) Allergies/Home Meds Allergies/Adverse Reactions: Allergies metoclopramide [From Reglan] Adverse Reaction (Verified 11/19/16 00:24) SHORTNESS OF BREATH Home Medications: Home Meds Medication Instructions Recorded Confirmed Vit No.126/Iron/Folic 1 tab PO DAILY 03/09/17 03/09/17 [Classic Tablet] Review of Systems - Physician Review All systems were reviewed & negative as marked: Yes - Review of Systems Constitutional: absent: Fevers, Night Sweats Respiratory: absent: SOB Cardiovascular: Chest Pain Gastrointestinal: Abdominal Pain, Vomiting. absent: Stool Changes, Diarrhea, Nausea Genitourinary Female: absent: Urine Output Changes Musculoskeletal: absent: Back Pain, Neck Pain Neurological: absent: Headache, Dizziness Physical Exam Vital Signs Reviewed: Yes Vital Signs Temp Pulse Resp BP Pulse Ox 03/10/17 01:36 98.4 F 84 18 106/74 99 03/09/17 20:41 98.4 F 98 H 18 93/55 L 100 Temperature: Afebrile Blood Pressure: Hypertensive Pulse: Tachycardic Respiratory Rate: Normal Appearance: Positive for: Well-Appearing, Non-Toxic, Comfortable Pain Distress: None Mental Status: Positive for: Alert and Oriented X 3 - Systems Exam Head: Present: Atraumatic, Normocephalic Pupils: Present: PERRL Extroacular Muscles: Present: EOMI Conjunctiva: Present: Normal Mouth: Present: Moist Mucous Membranes Neck: Present: Normal Range of Motion Respiratory/Chest: Present: Clear to Auscultation, Good Air Exchange. No: Respiratory Distress, Accessory Muscle Use Cardiovascular: Present: Regular Rate and Rhythm, Normal S1, S2. No: Murmurs Abdomen: Present: Normal Bowel Sounds, Other (Abdomen Gravid). No: Tenderness, Distention, Peritoneal Signs Back: Present: Normal Inspection Upper Extremity: Present: Normal Inspection. No: Cyanosis, Edema Lower Extremity: Present: Normal Inspection. No: Edema Neurological: Present: GCS=15, CN II-XII Intact, Speech Normal Skin: Present: Warm, Dry, Normal Color. No: Rashes Psychiatric: Present: Alert, Oriented x 3, Normal Insight, Normal Concentration Medical Decision Making ED Course and Treatment: 03/09/17 22:10 Impression: A 26 year old female presents to the emergency department complaining of abdominal cramping and left sided chest pain. Plan: -- Labs -- Urinalysis -- Urine Culture -- Reassess and disposition Prior Visits: Notes and results from previous visits were reviewed. Patient was last seen in the emergency department on 01/23/17. The patient was seen in the emergency department complaining of left leg cramping. The patient was discharged home. Progress Notes: EKG: Ordered, reviewed, and independently interpreted the EKG. Rate : 76 BPM Rhythm : NSR Interpretation : Normal axes and intervals. - Lab Interpretations Lab Results: 03/09/17 22:31 03/09/17 22:31 Lab Results 03/09/17 22:31: Sodium 136, Potassium 4.0, Chloride 106, Carbon Dioxide 24, Anion Gap 10, BUN 12, Creatinine 0.7, Est GFR ( Amer) > 60, Est GFR (Non- Af Amer) > 60, Random Glucose 102, Calcium 8.6, Total Bilirubin 0.2, AST 20, ALT 28, Alkaline Phosphatase 67, Lactate Dehydrogenase 327 L, Total Creatine Kinase 28 L, Troponin I < 0.01, Total Protein 6.3, Albumin 3.2, Globulin 3.1, Albumin/Globulin Ratio 1.0 L, Lipase 224 03/09/17 22:31: WBC 6.7 D, RBC 3.83, Hgb 10.3 L, Hct 31.5 L, MCV 82.2, MCH 26.9 , MCHC 32.7, RDW 14.1, Plt Count 230, MPV 9.4, Gran % 55.6, Lymph % (Auto) 35.4 H, Forest % (Auto) 7.3 H, Eos % (Auto) 1.6, Baso % (Auto) 0.1, Gran # 3.70, Lymph # 2.4, Forest # 0.5, Eos # 0.1, Baso # 0.01 03/09/17 21:38: Urine Color Yellow, Urine Appearance Clear, Urine pH 6.5, Ur Specific [place] 1.025, Urine Protein Negative, Urine Glucose (UA) Negative, Urine Ketones Trace H, Urine Blood Negative, Urine Nitrate Negative, Urine Bilirubin Negative, Urine Urobilinogen 0.2, Ur Leukocyte Esterase Negative I have reviewed the lab results: Yes - PA / TEST OPERATOR / Resident Statement MD/DO has reviewed & agrees with the documentation as recorded. - Scribe Statement The provider has reviewed the documentation as recorded by the Aurelio Jason Provider Scribe Attestation: All medical record entries made by the Scribe were at my direction and personally dictated by me. I have reviewed the chart and agree that the record accurately reflects my personal performance of the history, physical exam, medical decision making, and the department course for this patient. I have also personally directed, reviewed, and agree with the discharge instructions and disposition. Disposition/Present on Arrival - Present on Arrival Any Indicators Present on Arrival: No History of DVT/PE: No History of Uncontrolled Diabetes: No Urinary Catheter: No History of Decub. Ulcer: No History Surgical Site Infection Following: None - Disposition Have Diagnosis and Disposition been Completed?: Yes Diagnosis: , Intrauterine , Hx of ovarian cyst, Chest pain, atypical Disposition: HOME/ ROUTINE Disposition Time: 01:16 Patient Plan: Discharge Condition: GOOD Discharge Instructions (ExitCare): Chest Pain (ED) Additional Instructions: Claudia, All of your tests here tonight were good/normal. There is no ultrasound we can do here for you as we do not have an OB department, so you will have to follow up with your ob doctor for further testing. The only thing you can have for pain is tylenol right now. Please get in to see your OB doctor as soon as possible. [place]- Dr. John Tolliver Forms: [employer] ([place])
[2017-03-09 22:49] LABS: PH,URINE 6.5 (4.7-8.0); URINE BILIRUBIN NEGATIVE (NEGATIVE); URINE BLOOD NEGATIVE (NEGATIVE); URINE GLUCOSE (UA) NEGATIVE (NEGATIVE); URINE LEUKOCYTE ESTERASE NEGATIVE Leu/uL (NEGATIVE); URINE NITRATE NEGATIVE (NEGATIVE); URINE PROTEIN NEGATIVE mg/dL (<30 mg/dL); URINE UROBILINOGEN 0.2 E.U./dL (<1 E.U./dL)
[2017-03-09 22:50] LABS: BASO # 0.01 K/mm3 (0.0-2.0); BASO % 0.1 % (0.0-3.0); EOS # 0.1 (0.0-0.7); EOS % 1.6 % (1.5-5.0); GRAN # 3.7 (1.4-6.5); GRAN % 55.6 % (50.0-68.0); HEMOGLOBIN 10.3 g/dL (12.0-16.0); LYMPH # 2.4 (1.2-3.4); LYMPH % 35.4 % (22.0-35.0); MEAN CELL VOLUME 82.2 fl (80.0-105.0); MEAN CORPUSCULAR HEMOGLOBIN 26.9 pg (25.0-35.0); MEAN CORPUSCULAR HGB CONC 32.7 g/dl (31.0-37.0); MEAN PLATELET VOLUME 9.4 fl (7.0-11.0); MONO # 0.5 (0.1-0.6); MONO % 7.3 % (1.0-6.0); RBC 3.83 10^6/uL (3.5-6.1); RED CELL DISTRIBUTION WIDTH 14.1 % (11.5-14.5); WHITE BLOOD COUNT 6.7 10^3/ul (4.5-11.0)
[2017-03-09 22:55] LABS: URINE APPEARANCE CLEAR (CLEAR); URINE COLOR YELLOW (YELLOW)
[2017-03-09 23:01] LABS: ALBUMIN 3.2 g/dL (3.0-4.8); ALT/SGPT 28 U/L (7-56); AST/SGOT 20 U/L (14-36); BLOOD UREA NITROGEN 12 mg/dL (7-21); CALCIUM 8.6 mg/dL (8.4-10.5); GFR AFRICAN-AMERICAN > 60; GFR NON-AFRICAN AMERICAN > 60; LIPASE 224 U/L (23-300)
[2017-03-09 23:12] LABS: TROPONIN I < 0.01 ng/mL
[2017-03-10 03:37] VITALS: BP 106/74; PULSE 84; O2SAT 99
--- NOTE | 2017-03-10 22:42 | CARD ---
APPROVED REPORT EKG Measurement Heart [id number] <Conclusion> Normal sinus rhythm with sinus arrhythmia Normal ECG
== END 2017-03-10 01:36 | disposition home or self-care (01) ==
LOC: ED 19:16
DX: O26.893 Other specified pregnancy related conditions, third trimester (principal); Z3A.30 30 weeks gestation of pregnancy; R07.89 Other chest pain; N83.209 Unspecified ovarian cyst, unspecified side

== ENCOUNTER 2017-11-01 02:09 | Emergency (ER) | payer BC, MEDICAID ==
[2017-11-01 02:10] VITALS: BMI 25.4
--- NOTE | 2017-11-01 02:16 | ED PDOC ---
Arrival/HPI - General Time Seen by Provider: 11/01/17 02:12 - History of Present Illness Narrative History of Present Illness (Text): 11/01/17 02:14 Wendi Merida is a 27 year old female, with past medical history of asthma , who presents to the emergency department complaining of shortness of breath. Patient states that she lost her albuterol inhaler recently. Patient was at the park today and felt short of breath but has now resolved. Patient came to the ED today because she needs prescription for albuterol inhaler. Patient denies shortness of breath, chest pain, abdominal pain, or other symptoms at this time. Past Medical History - Provider Review Nursing Documentation Reviewed: Yes - Travel History Have you recently traveled outside [place] w/in the past 3 mons?: No - Infectious Disease Hx of Infectious Diseases: None - Cardiac Hx Cardiac Arrhythmia: Yes - Pulmonary Hx Asthma: Yes Hx Bronchitis: Yes - Neurological Hx Neurological Disorder: Yes (Multiple syncopal episodes) - HEENT Hx HEENT Disorder: No - Renal Hx Renal Disorder: No - Endocrine/Metabolic Hx Endocrine Disorders: No - Hematological/Oncological Hx Anemia: Yes - Integumentary Hx Dermatological Disorder: No - Musculoskeletal/Rheumatological Hx Musculoskeletal Disorders: No - Gastrointestinal Hx Gastrointestinal Disorders: No - Genitourinary/Gynecological Hx Genitourinary Disorders: Yes - Psychiatric Hx Anxiety: Yes Hx Substance Use: No (denies) - Surgical History Hx Dilation and Curettage: Yes (2016) - Anesthesia Hx Anesthesia: Yes Hx Anesthesia Reactions: No Hx Malignant Hyperthermia: No Family/Social History - Physician Review Nursing Documentation Reviewed: Yes Family/Social History: No Known Family HX Smoking Status: Former Smoker Hx Alcohol Use: No (denies) Hx Substance Use: No (denies) Allergies/Home Meds Allergies/Adverse Reactions: Allergies metoclopramide [From Reglan] Allergy (Verified 11/01/17 02:20) RASH Home Medications: Home Meds Medication Instructions Recorded Confirmed Albuterol HFA [Ventolin HFA 90 2 puff IH [id number] PRN 03/14/17 03/14/17 mcg/actuation (8 g)] Review of Systems - Physician Review All systems were reviewed & negative as marked: Yes - Review of Systems Constitutional: Normal. absent: Fevers, Night Sweats Eyes: Normal ENT: Normal Respiratory: Normal. absent: SOB, Cough, Wheezing Cardiovascular: Normal. absent: Chest Pain Gastrointestinal: Normal. absent: Abdominal Pain, Constipation, Diarrhea, Nausea Genitourinary Female: Normal. absent: Dysuria, Frequency Musculoskeletal: Normal Skin: Normal. absent: Rash Neurological: Normal. absent: Headache Psychiatric: Normal. absent: Anxiety, Depression Physical Exam Vital Signs Temp Pulse Resp BP Pulse Ox 11/01/17 02:40 65 17 118/61 100 11/01/17 02:23 18 100 11/01/17 02:20 98.1 F 61 18 112/58 L 100 Temperature: Afebrile Blood Pressure: Normal Pulse: Regular Respiratory Rate: Normal Appearance: Positive for: Well-Appearing, Non-Toxic, Comfortable Pain Distress: None Mental Status: Positive for: Alert and Oriented X 3 - Systems Exam Head: Present: Atraumatic, Normocephalic Pupils: Present: PERRL Extroacular Muscles: Present: EOMI Conjunctiva: Present: Normal Mouth: Present: Moist Mucous Membranes Respiratory/Chest: Present: Clear to Auscultation, Good Air Exchange. No: Respiratory Distress, Accessory Muscle Use, Wheezes, Decreased Breath Sounds, Rales, Rhonchi Cardiovascular: Present: Regular Rate and Rhythm, Normal S1, S2. No: Murmurs, Rub, Gallop Abdomen: Present: Normal Bowel Sounds. No: Tenderness, Distention, Peritoneal Signs Upper Extremity: Present: Normal Inspection. No: Cyanosis, Edema Lower Extremity: Present: Normal Inspection. No: Edema Neurological: Present: GCS=15, CN II-XII Intact, Speech Normal Skin: Present: Warm, Dry, Normal Color. No: Rashes Psychiatric: Present: Alert, Oriented x 3, Normal Insight, Normal Concentration Medical Decision Making ED Course and Treatment: 11/01/17 02:15 Impression: Patient is a 27 year old female presenting with shortness of breath. Differential Diagnosis included but are not limited to: -Asthma exacerbation Plan: -- Albuterol inhaler Progress Notes: 11/01/17 02:32 - Patient assessed, she is not complaining of SOB at this time and no wheezes heard on examination. Patient lost her albuterol inhaler and wanted another one. Patient is stable for discharge. Disposition/Present on Arrival - Present on Arrival Any Indicators Present on Arrival: No History of DVT/PE: No History of Uncontrolled Diabetes: No Urinary Catheter: No History of Decub. Ulcer: No History Surgical Site Infection Following: None - Disposition Have Diagnosis and Disposition been Completed?: Yes Diagnosis: Shortness of breath Disposition: HOME/ ROUTINE Disposition Time: 02:34 Patient Plan: Discharge Condition: STABLE Additional Instructions: WENDI MERIDA, thank you for letting us take care of you today. Your provider was and you were treated for shortness of breath. The emergency medical care you received today was directed at your acute symptoms. If you were prescribed any medication, please fill it and take as directed. It may take several days for your symptoms to resolve. Return to the Emergency Department if your symptoms worsen, do not improve, or if you have any other problems. Please contact your doctor or call one of the physicians/clinics you have been referred to that are listed on the Patient Visit Information form that is included in your discharge packet. Bring any paperwork you were given at discharge with you along with any medications you are taking to your follow up visit. Our treatment cannot replace ongoing medical care by a primary care provider outside of the emergency department. Thank you for allowing the [facility] team to be part of your care today. If you had an X-Ray or CT scan: A Radiologist will review the ED reading if any change in treatment is needed we will contact you. If you had a blood, urine, or wound culture: It will take several days for the results, if any change in treatment is needed we will contact you. If you had an STI test: It will take 48 hours for the results. Please call after 1 week if you have not heard back. Prescriptions: Albuterol HFA [Ventolin HFA 90 mcg/actuation (8 g)] 2 puff IH [id number] PRN #1 puff PRN Reason: Shortness Of Breath
[2017-11-01 02:22] VITALS: TEMP 98.1; O2SAT 100
[2017-11-01 02:50] VITALS: BP 118/61; PULSE 65; RESP 17
== END 2017-11-01 02:35 | disposition home or self-care (01) ==
LOC: ED 02:09
DX: R06.02 Shortness of breath (principal)